=== PATIENT | male | born 1975 | race Caucasian/White ===

== ENCOUNTER → 2017-09-13 15:15 | Outpatient (CLI) | payer BC, SELFPAY ==
[2017-09-13 15:37] LABS: Basophils % 0.4 % (0.1-2.0); Eosinophils # 0.1 K/mm3 (0.0-0.4); Eosinophils % 2.1 % (0.1-12.0); Hemoglobin 15.8 g/dL (14.1-18.0); Lymphocytes # 2.5 K/mm3 (0.7-4.5); Mean Corpuscular HGB Conc 32.9 g/dL (31.8-35.4); Mean Corpuscular Hemoglobin 28.9 pg (27.0-31.2); Mean Corpuscular Volume 87.8 fl (80-94); Mean Platelet Volume 6.8 fl (7.4-10.4); Monocytes # 0.3 K/mm3 (0.1-1.0); Monocytes % 4.2 % (1.7-9.3); Neutrophils # 3.5 K/mm3 (1.8-7.8); Neutrophils % 54.4 % (37.0-80.0); Platelet Count 339 K/mm3 (142-424); Red Blood Count 5.47 M/mm3 (4.60-6.20); Red Cell Distribution Width 12.6 % (11.5-17.5); White Blood Count 6.4 K/mm3 (4.8-10.8)
[2017-09-13 18:02] LABS: Alanine Aminotransferase 43 U/L (12-78); Albumin/Globulin Ratio 1.3 (1.1-1.8); Alkaline Phosphatase 100 U/L (46-116); Amylase 50 U/L (25-125); Anion Gap 11.9 mEq/L (5-15); Aspartate Amino Transferase 23 U/L (15-37); Bilirubin,Total 0.7 mg/dL (0.2-1.0); Blood Urea Nitrogen 12 mg/dL (7-18); Calcium 9.6 mg/dL (8.5-10.1); Carbon Dioxide 29 mmol/L (21.0-32.0); Chloride 104 mmol/L (98-107); Creatinine,Serum 0.92 mg/dL (0.70-1.30); Estimated Glomerular Filt Rate 92 ml/min (>60); GFR (African American) 111 ML/MIN (>60); Globulin 3.2 gm/dl (1.3-3.2); Glucose 91 mg/dL (74-106); Lipase 147 u/L (73-393); Potassium 3.9 mmoL/L (3.5-5.1); Sodium 141 mmol/L (136-145); Total Protein,Serum 7.2 gm/dL (6.4-8.2)
== END ==
PROVIDERS: Visit Provider Internal Medicine Adolescent Medicine
DX: R19.7 Diarrhea, unspecified (principal); R10.30 Lower abdominal pain, unspecified
CPT/HCPCS: 36415; 80053; 82150; 83690; 85025

== ENCOUNTER → 2018-07-15 15:26 | Outpatient (CLI) | payer BC, SELFPAY ==
--- NOTE | 2018-07-15 15:35 | XR_ITS ---
EXAM: XR thoracic spine 3V HISTORY: ITS.REASON: MID THORACIC PAIN Comparison: None FINDINGS: Normal alignment. No fracture or dislocation. No lytic or blastic change. There is mild upper thoracic scoliosis convex left. IMPRESSION: Mid to upper levoscoliosis otherwise negative
--- NOTE | 2018-07-15 15:35 | XR_ITS ---
EXAM: XR cervical spine 5V HISTORY: ITS.REASON: NECK PAIN ORDERING PHYSICIAN: Chapo Cisneros MD PATIENT AGE: 42 years COMPARISON: None FINDINGS: Normal alignment. No fracture or dislocation. No lytic or blastic change. There is mild degenerative disc disease at C4-C5 and C5-C6. No fracture or dislocation evident. No lytic or blastic change. There is mild upper thoracic curvature convex left. No evidence of cervical rib. IMPRESSION: Degenerative disc disease C4-C5 and C5-C6
--- NOTE | 2018-07-15 15:35 | XR_ITS ---
EXAM: XR lumbar spine min 4V HISTORY: ITS.REASON: LOW BACK PAIN ORDERING PHYSICIAN: Chapo Cisneros MD PATIENT AGE: 42 years COMPARISON: None FINDINGS: Normal alignment. No fracture or dislocation. No lytic or blastic change. No significant degenerative change. The disc spaces are preserved. Incidental vascular calcification is present in the lower abdominal aorta IMPRESSION: Negative lumbar spine
== END ==
PROVIDERS: PCP Internal Medicine Adolescent Medicine; Visit Provider Internal Medicine Adolescent Medicine
DX: M54.2 Cervicalgia (principal); M54.5 Low back pain; M54.6 Pain in thoracic spine
CPT/HCPCS: 72050; 72072; 72110

== ENCOUNTER 2020-03-26 09:58 | Emergency (ER) | payer BC, SELFPAY ==
[2020-03-26 09:58] VITALS: BP 147/97; PULSE 73; RESP 18; TEMP 36.9; O2SAT 98; BMI 28.4
--- NOTE | 2020-03-26 10:18 | CT_ITS ---
PROCEDURE: CT PELVIS WO CON CLINICAL INDICATION: trauma The posttraumatic pain, tailbone pain COMPARISON: No exams were available for comparison TECHNIQUE: Axial images obtained with sagittal and coronal reformats. All CT scans at the facility use one or more dose reduction, viz: automated exposure control, ma/kV adjustment per patient size (including targeted exams where dose is matched to indication, i.e. head), or iterative reconstruction technique. FINDINGS: Bony pelvis: Unremarkable. No acute fracture or dislocation. Hips:Unremarkable. No acute fracture or dislocation. Sacrum/coccyx: Unremarkable as visualized. No acute fracture. Soft tissues:Unremarkable Other findings: No other pertinent findings IMPRESSION: No acute fracture Dictated by: Fredy Rubio MD 03/26/2020 14:16 Fredy Rubio MD in [facility] 03/26/2020 14:16
--- NOTE | 2020-03-26 10:18 | CT_ITS ---
PROCEDURE: CT LUMBAR SPINE WO CON CLINICAL HISTORY: trauma Posttraumatic pain, fall with injury and pain COMPARISON: No exams were available for comparison TECHNIQUE: Axial images obtained with sagittal and coronal reformats. All CT scans at the facility use one or more dose reduction, viz: automated exposure control, ma/kV adjustment per patient size (including targeted exams where dose is matched to indication, i.e. head), or iterative reconstruction technique. FINDINGS: Normal alignment. No fracture or dislocation. Minimal bulging disc L5-S1 and L4-L5. Small sclerotic focus is present in the L5 vertebral body consistent with a small bone island. There is minimal lumbar curvature convex left IMPRESSION: No acute finding Dictated by: Fredy Rubio MD 03/26/2020 14:18 Fredy Rubio MD in [facility] 03/26/2020 14:18
[2020-03-26 10:38] VITALS: BP 156/98; PULSE 66; RESP 20; O2SAT 98
--- NOTE | 2020-03-26 10:41 | HMH.EDFALL ---
ED Disposition Clinical Impression: Fall (on) (from) other stairs and steps, initial encounter, Acute coccygeal pain Lumbar strain Qualifiers: Encounter type: initial encounter Qualified Code(s): S39.012A - Strain of muscle, fascia and tendon of lower back, initial encounter Disposition: Home, Self-Care Condition on Discharge: Good Instructions: DI for Lumbar Radiculopathy Prescriptions: Ibuprofen [Ibuprofen 800mg Tablet] 800 mg PO TIDP PRN #20 tab PRN Reason: Moderate Pain Transmission Status: Pending to [facility] methocarbamoL [Robaxin 750mg Tab] 750 mg PO TID 10 Days #30 tab Transmission Status: Pending to [facility] Referrals: Chapo Cisneros MD [Primary Care Provider] - - Critical Care Critical Care Time: No Attestation: On 03/26/20, the high probability of a clinically significant, sudden or life threatening deterioration of the following system(s) required my full and direct attention, intervention and personal management. The time I documented below is in addition to time spent performing reported procedures but includes the following listed in this critical care notation. Medical Decision Making - Medical Records Medical records reviewed: Yes: I reviewed the patient's medical records. - Issac Inquiry Pt receiving controlled substance: Yes Issac was queried for this patient: No Reason not queried -: Emergent pt cond-no time Risks and benefits of using a controlled substance: were discussed with pt by me Vital Signs: 03/26/20 09:58 03/26/20 10:38 Temperature 98.5 F Temperature Source Oral Pulse Rate [Radial] 73 66 Respiratory Rate 18 20 Blood Pressure [Right Arm] 147/97 H 156/98 H Blood Pressure Mean [Right Arm] 113 117 Blood Pressure Source [Right Arm] Automatic Cuff Blood Pressure Position [Right Arm] Sitting Sitting 02 Sat by Pulse Oximetry 98 98 Oxygen Delivery Method Room Air Room Air Orders (Tests/Meds): ED MEDICATIONS Generic Name Dose Route Start Last Admin Trade Name Freq PRN Reason Stop Dose Admin Hydrocodone Bitart/Acetaminophen 1 tab 03/26/20 10:18 Hydrocodone 10mg/Apap 325mg Tab PO 04/25/20 10:17 Q4HP PRN Breakthru Moderate Pain ORDERS Category Date Time Status CT lumbar spine wo con Stat Cat Scan 03/26/20 10:[address] pelvis wo con Stat Cat Scan 03/26/20 10:18 Taken - CT Data CT Scan: Pelvis, L-Spine Time Received: 11:[address] Reviewed: Yes: I have reviewed the patient's CT results, I have viewed the radiologist's interpretation Preliminary Findings: Normal/NAD, No Fracture Seen - Reevaluation(s) Time: 11:31 Reevaluation #1: On reevaluation, patient's pain is improved. There is no evidence of fracture or dislocation. Patient will be discharged with analgesics as well as muscle relaxers. He is to follow-up with PCP in 48 hours. Given strict return precautions. Verbalized understanding. Medical Decision Narrative: 44-year-old male presenting after accidental fall. Imaging of the back and pelvis will be obtained. Analgesics provided. Fall HPI - General Chief Complaint: Fall Stated Complaint: [id number] back pain,home Time Seen by Provider: 03/26/20 10:05 Mode of Arrival: Wheelchair Limitations: No Limitations Description of Symptoms (Recalled from ER Triage Doc. by RN): TO ED PER PV[employer] CAR WITH C/O BACK PAIN STATES FELL DOWN A FLIGHT OF STEPS APPROX 9AM. STATES HE TOOK SOME MOTRIN AT 9AM WITH NO RELIEF OF PAIN - History of Present Illness HPI Narrative: Is a 44-year-old male presented to the emergency department after an accidental fall. The patient was at the top of the stairs when his feet slipped and he fell backwards. He landed directly on his tailbone his lower back. He is complaining of tailbone pain and lower back pain. He denies sustained any head trauma. There is no syncope. Patient was able to ambulate afterwards, however did cause significant pain in his lower back and fang
[2020-03-26 12:01] VITALS: BP 122/74; PULSE 78; RESP 16; TEMP 36.6; O2SAT 98
== END 2020-03-26 12:03 | disposition home or self-care (01) ==
PROVIDERS: Emergency Provider Emergency Medicine; PCP Internal Medicine Adolescent Medicine
DX: S39.012A Strain of muscle, fascia and tendon of lower back, initial encounter (principal); W10.8XXA Fall (on) (from) other stairs and steps, initial encounter; Y92.019 Unspecified place in single-family (private) house as the place of occurrence of the external cause; K21.9 Gastro-esophageal reflux disease without esophagitis; I10 Essential (primary) hypertension
CPT/HCPCS: 72131; 72192; 99282

== ENCOUNTER → 2020-07-11 13:20 | Outpatient (CLI) | payer BC, SELFPAY ==
[2020-07-11 14:33] LABS: Basophils % 0.6 % (0.1-2.0); Eosinophils # 0.1 K/mm3 (0.0-0.4); Eosinophils % 1.4 % (0.1-12.0); Hematocrit 47.3 % (42.0-52.0); Hemoglobin 15.7 g/dL (14.1-18.0); Lymphocytes # 2.1 K/mm3 (0.7-4.5); Lymphocytes % 38.3 % (10-50); Mean Corpuscular HGB Conc 33.2 g/dL (31.8-35.4); Mean Corpuscular Hemoglobin 29.7 pg (27.0-31.2); Mean Corpuscular Volume 89.7 fl (80-94); Mean Platelet Volume 7.5 fl (7.4-10.4); Monocytes # 0.3 K/mm3 (0.1-1.0); Neutrophils # 3.1 K/mm3 (1.8-7.8); Neutrophils % 54.6 % (37.0-80.0); Platelet Count 284 K/mm3 (142-424); Red Blood Count 5.28 M/mm3 (4.60-6.20); Red Cell Distribution Width 13.2 % (11.5-17.5); White Blood Count 5.6 K/mm3 (4.8-10.8)
[2020-07-11 15:21] LABS: Alanine Aminotransferase 58 U/L (12-78); Albumin Level 4.8 g/dl (3.5-5.0); Albumin/Globulin Ratio 1.8 (1.1-1.8); Alkaline Phosphatase 112 U/L (38-126); Aspartate Amino Transferase 40 U/L (17-59); Bilirubin,Total 0.6 mg/dl (0.2-1.3); Blood Urea Nitrogen 13 mg/dl (9-20); Calcium 9.5 mg/dl (8.4-10.2); Carbon Dioxide 28 mmol/L (22.0-30.0); Chloride 104 mmol/L (98-107); Chol/HDL Ratio 4.6 (1-3.5); Cholesterol 183 mg/dl (140-200); Estimated Glomerular Filt Rate 93 ml/min (>60); GFR (African American) 112 ML/MIN (>60); Globulin 2.6 g/dL (1.3-3.2); Glucose 92 mg/dl (74-100); HDL Cholesterol 40 mg/dl (40-60); Sodium 140 mmol/L (136-145); Total Protein,Serum 7.4 g/dl (6.3-8.2); Triglycerides 210 mg/dl (30-150); VLDL Cholesterol 42 mg/dL (0-40)
[2020-07-11 15:31] LABS: Direct LDL Cholesterol 98.05 mg/dL (100-129)
[2020-07-11 15:39] LABS: 25-OH Vitamin D, Total 28.9 ng/mL (30-100)
[2020-07-11 15:52] LABS: Thyroid Stimulating Hormone 1.29 uIU/mL (0.465-4.68)
[2020-07-11 16:11] LABS: Vitamin B12 378 pg/mL (239-931)
[2020-07-13 11:21] LABS: Testosterone,Total 337 ng/dL (264-916)
== END ==
PROVIDERS: Visit Provider Nurse Practitioner Family
DX: I10 Essential (primary) hypertension (principal); R53.81 Other malaise; E55.9 Vitamin D deficiency, unspecified
CPT/HCPCS: 36415; 80053; 80061; 82306; 82607; 84403; 84443; 85025

== ENCOUNTER → 2020-07-29 16:00 | Outpatient (CLI) | payer BC, SELFPAY | PROVIDERS: PCP Internal Medicine Adolescent Medicine; Visit Provider Internal Medicine Adolescent Medicine | DX: G47.33 Obstructive sleep apnea (adult) (pediatric) (principal); R06.83 Snoring | CPT/HCPCS: G0399 ==

== ENCOUNTER → 2020-09-16 12:36 | Outpatient (CLI) | payer BC, SELFPAY ==
--- NOTE | 2020-09-16 12:40 | US_ITS ---
PROCEDURE: US THYROID CLINICAL INDICATION: THYROMEGALY COMPARISON: No exams were available for comparison FINDINGS: Right lobe: The right lobe measures 1.6 x 4.5 x 1.9 cm and shows homogeneous echogenicity with no cystic or solid nodule seen. Left lobe: The left lobe measures 1.4 x 4.1 x 1.8 cm and shows homogeneous echogenicity with no cystic or solid nodule seen. Isthmus: The isthmus measures 0.5 cm. Additional findings: There is no obvious abnormal cervical lymphadenopathy. IMPRESSION: Mild generalized thyromegaly without nodules. Dictated by: Dr. Serafin Bautista MD 09/16/2020 14:56 Dr. Serafin Bautista MD in [place] 09/16/2020 14:56
== END ==
PROVIDERS: PCP Internal Medicine Adolescent Medicine; Visit Provider Nurse Practitioner Family
DX: E01.0 Iodine-deficiency related diffuse (endemic) goiter (principal)
CPT/HCPCS: 76536

== ENCOUNTER → 2021-02-22 07:26 | Outpatient (CLI) | payer BC, SELFPAY ==
[2021-02-22 14:26] LABS: Basophils # 0.1 K/mm3 (0-0.2); Basophils % 1.1 % (0.1-2.0); Eosinophils # 0.1 K/mm3 (0.0-0.4); Eosinophils % 2.1 % (0.1-12.0); Hematocrit 45.4 % (42.0-52.0); Hemoglobin 15.1 g/dL (14.1-18.0); Lymphocytes # 2.1 K/mm3 (0.7-4.5); Lymphocytes % 39.4 % (10-50); Mean Corpuscular HGB Conc 33.4 g/dL (31.8-35.4); Mean Corpuscular Hemoglobin 30.6 pg (27.0-31.2); Mean Corpuscular Volume 91.7 fl (80-94); Mean Platelet Volume 8.1 fl (7.4-10.4); Monocytes # 0.3 K/mm3 (0.1-1.0); Monocytes % 5.8 % (1.7-9.3); Neutrophils # 2.8 K/mm3 (1.8-7.8); Neutrophils % 51.5 % (37.0-80.0); Platelet Count 278 K/mm3 (142-424); Red Blood Count 4.94 M/mm3 (4.60-6.20); Red Cell Distribution Width 13.1 % (11.5-17.5); White Blood Count 5.4 K/mm3 (4.8-10.8)
[2021-02-22 14:59] LABS: Alanine Aminotransferase 35 U/L (12-78); Albumin Level 4.1 g/dl (3.5-5.0); Albumin/Globulin Ratio 1.7 (1.1-1.8); Alkaline Phosphatase 100 U/L (38-126); Anion Gap 10.1 mEq/L (5-15); Aspartate Amino Transferase 31 U/L (17-59); Bilirubin,Total 0.5 mg/dl (0.2-1.3); Blood Urea Nitrogen 14 mg/dl (9-20); Calcium 8.7 mg/dl (8.4-10.2); Carbon Dioxide 27 mmol/L (22.0-30.0); Chloride 106 mmol/L (98-107); Chol/HDL Ratio 4.3 (1-3.5); Cholesterol 136 mg/dl (140-200); Creatine Kinase 101 U/L (55-170); Estimated Glomerular Filt Rate 106 ml/min (>60); GFR (African American) 128 ML/MIN (>60); Globulin 2.4 g/dL (1.3-3.2); Glucose 110 mg/dl (74-100); HDL Cholesterol 32 mg/dl (40-60); Magnesium 1.8 mg/dl (1.6-2.3); Potassium 4.1 mmoL/L (3.5-5.1); Sodium 139 mmol/L (136-145); Total Protein,Serum 6.5 g/dl (6.3-8.2); Triglycerides 335 mg/dl (30-150); VLDL Cholesterol 67 mg/dL (0-40)
[2021-02-22 15:10] LABS: Direct LDL Cholesterol 64.37 mg/dL (100-129)
[2021-02-22 15:16] LABS: 25-OH Vitamin D, Total 48.7 ng/mL (30-100)
[2021-02-22 15:34] LABS: Hemoglobin A1C 5.6 % (4.0-6.0)
[2021-02-22 15:49] LABS: Vitamin B12 560 pg/mL (239-931)
[2021-02-27 18:09] LABS: Testosterone, Total, LC/MS 305.1 ng/dL (264.0-916.0); Testosterone,Free 7.2 pg/mL (6.8-21.5)
== END ==
PROVIDERS: Visit Provider Internal Medicine Adolescent Medicine
DX: M79.10 Myalgia, unspecified site (principal); R53.81 Other malaise; E53.8 Deficiency of other specified B group vitamins; E55.9 Vitamin D deficiency, unspecified
CPT/HCPCS: 36415; 80053; 80061; 82306; 82533; 82550; 82607; 83036; 83735; 84402; 84403; 85025

== ENCOUNTER → 2021-07-18 12:18 | Outpatient (CLI) | payer BC, SELFPAY ==
--- NOTE | 2021-07-18 12:32 | XR_ITS ---
FINAL REPORT CLINICAL HISTORY: RT FOOT PAIN FINDINGS: RIGHT FOOT Three views demonstrate no acute fracture or dislocation. The joint spaces appear normal. The visualized bony structures are well aligned. No soft tissue abnormality is seen. IMPRESSION: No acute process. Reviewed, Interpreted and Dictated by Adrian Gauthier III, MD Transcribed by Alisson Hunter Authenticated by Adrian Gauthier III, MD on 07/18/2021 01:46:04 PM [facility]
--- NOTE | 2021-07-18 12:32 | XR_ITS ---
FINAL REPORT CLINICAL HISTORY: LOW BACK PAIN FINDINGS: SACROILIAC JOINTS Four views demonstrate no acute fracture or dislocation. The joint spaces appear normal. The visualized bony structures are well aligned. No soft tissue abnormality is seen. IMPRESSION: No acute process. Reviewed, Interpreted and Dictated by Adrian Gauthier III, MD Transcribed by Alisson Hunter Authenticated by Adrian Gauthier III, MD on 07/18/2021 01:45:[address] [facility]
--- NOTE | 2021-07-18 12:32 | XR_ITS ---
FINAL REPORT CLINICAL HISTORY: . FINDINGS: THORACIC SPINE Three views were obtained. There is no acute fracture. There is no malalignment. There is leftward curvature centered at T4. The disc spaces are preserved. There is no soft tissue abnormality. IMPRESSION: Leftward curvature without acute bony abnormality. LUMBAR SPINE Two views were obtained. There is no acute fracture. There is no malalignment. There is mild leftward curvature. The disc spaces are preserved. There is no soft tissue abnormality. IMPRESSION: Leftward curvature without acute bony abnormality. Reviewed, Interpreted and Dictated by Adrian Gauthier III, MD Transcribed by Paulina Anderson Authenticated by Adrian Gauthier III, MD on 07/18/2021 02:06:36 PM [facility]
--- NOTE | 2021-07-18 12:32 | XR_ITS ---
FINAL REPORT CLINICAL HISTORY: LT FOOT PAIN FINDINGS: LEFT FOOT Three views demonstrate no acute fracture or dislocation. The joint spaces appear normal. The visualized bony structures are well aligned. No soft tissue abnormality is seen. IMPRESSION: No acute process. Reviewed, Interpreted and Dictated by Adrian Gauthier III, MD Transcribed by Alisson Hunter Authenticated by Adrian Gauthier III, MD on 07/18/2021 01:46:01 PM [facility]
[2021-07-18 13:30] LABS: Basophils # 0.1 K/mm3 (0-0.2); Basophils % 0.9 % (0.1-2.0); Eosinophils # 0.1 K/mm3 (0.0-0.4); Eosinophils % 1.9 % (0.1-12.0); Hematocrit 45.7 % (42.0-52.0); Lymphocytes # 1.9 K/mm3 (0.7-4.5); Lymphocytes % 37.9 % (10-50); Mean Corpuscular HGB Conc 32.9 g/dL (31.8-35.4); Mean Corpuscular Hemoglobin 29.7 pg (27.0-31.2); Mean Corpuscular Volume 90.3 fl (80-94); Mean Platelet Volume 8.5 fl (7.4-10.4); Monocytes # 0.2 K/mm3 (0.1-1.0); Monocytes % 4.7 % (1.7-9.3); Neutrophils # 2.7 K/mm3 (1.8-7.8); Neutrophils % 54.6 % (37.0-80.0); Platelet Count 283 K/mm3 (142-424); Red Blood Count 5.06 M/mm3 (4.60-6.20); Red Cell Distribution Width 13.8 % (11.5-17.5)
[2021-07-18 14:07] LABS: Erythrocyte Sedimentation Rate 8 mm/hr (0-15)
[2021-07-18 14:12] LABS: Alanine Aminotransferase 44 U/L (12-78); Albumin Level 4.4 g/dl (3.5-5.0); Albumin/Globulin Ratio 1.9 (1.1-1.8); Alkaline Phosphatase 92 U/L (38-126); Aspartate Amino Transferase 35 U/L (17-59); Bilirubin,Total 0.8 mg/dl (0.2-1.3); Blood Urea Nitrogen 15 mg/dl (9-20); Calcium 8.9 mg/dl (8.4-10.2); Carbon Dioxide 26 mmol/L (22.0-30.0); Chloride 106 mmol/L (98-107); Estimated Glomerular Filt Rate 106 ml/min (>60); GFR (African American) 128 ML/MIN (>60); Globulin 2.3 g/dL (1.3-3.2); Glucose 102 mg/dl (74-100); Sodium 140 mmol/L (136-145); Total Protein,Serum 6.7 g/dl (6.3-8.2)
[2021-07-18 14:29] LABS: C-Reactive Protein 0.4 mg/L (0-4)
[2021-07-19 12:19] LABS: RA Latex Turbid. <10.0 IU/mL (<14.0)
[2021-07-19 15:14] LABS: Anti-Cardiolipin Antibody IgG <9 GPL U/mL (0-14); Anti-Centromere B Antibodies <0.2 AI (0.0-0.9); Anti-DNA (DS) Ab Qn 1 IU/mL (0-9); Anti-Jo-1 <0.2 AI (0.0-0.9); Anti-Smith Antibody <0.2 AI (0.0-0.9); Antichromatin Antibodies <0.2 AI (0.0-0.9); Antiscleroderma-70 Antibodies <0.2 AI (0.0-0.9); RNP Antibodies <0.2 AI (0.0-0.9); Sjogren's Anti-SS-A <0.2 AI (0.0-0.9); Sjogren's Anti-SS-B <0.2 AI (0.0-0.9)
[2021-07-19 23:18] LABS: Neisseria gonorrhoeae, NAA Negative (Negative)
== END ==
PROVIDERS: PCP Internal Medicine Adolescent Medicine; Visit Provider Internal Medicine Adolescent Medicine
DX: M19.90 Unspecified osteoarthritis, unspecified site (principal); R30.0 Dysuria; M54.50 Low back pain, unspecified; M79.672 Pain in left foot; M79.671 Pain in right foot
CPT/HCPCS: 36415; 72084; 72202; 73630; 80053; 85025; 85651; 86140; 86147; 86225; 86235; 86431; 87491; 87591

== ENCOUNTER 2021-08-11 03:13 | Emergency (ER) | payer BC, SELFPAY ==
[2021-08-11] VITALS (7 sets, daily range): BP systolic 132–162; BP diastolic 78–100; PULSE 67–85; RESP 17–24; TEMP 36.6–36.9; O2SAT 93–99; BMI 33.4
--- NOTE | 2021-08-11 03:11 | ECG_ITS ---
APPROVED REPORT Exam: Resting ECG HR:91 bpm ECG Measurements Heart Rate 91 AXES HI 143 P 63 QRSd 92 QRS 72 QT 326 T 27 QTc 374 Conclusion SINUS RHYTHM NORMAL ECG UNCONFIRMED REPORT Electronically signed by : Chapo Cisneros MD 08/12/2021 12:13:18
[2021-08-11 03:52] LABS: POC Glucose,Bedside 125 (70-110)
--- NOTE | 2021-08-11 04:08 | XR_ITS ---
PROCEDURE INFORMATION: Exam: XR Chest Exam date and time: 08/11/2021 4:15 AM Age: 45 years old Clinical indication: Sternal or substernal pain; Additional info: Chest pain TECHNIQUE: Imaging protocol: XR of the chest. Views: 1 view. COMPARISON: CR XR MULTIPLE SPINE 6+V 07/18/2021 12:36 PM FINDINGS: Lungs: Hypoventilatory changes of the lungs, with perihilar vascular crowding and a diffuse increase in pulmonary parenchymal density. Pleural spaces: Unremarkable. No pleural effusion. No pneumothorax. Heart/Mediastinum: Upper limits normal cardiac size accentuated by low lung volumes. Bones/joints: Unremarkable. IMPRESSION: Hypoventilatory changes, no acute findings.
[2021-08-11 04:17] LABS: Chloride 106 mmol/L (98-107); Potassium 3.8 mmoL/L (3.5-5.1); Sodium 140 mmol/L (136-145)
[2021-08-11 04:19] LABS: Alanine Aminotransferase 135 U/L (12-78); Aspartate Amino Transferase 63 U/L (17-59); Blood Urea Nitrogen 16 mg/dl (9-20); Creatinine Clearance Estimated 168 mL/min (50-200); Estimated Glomerular Filt Rate 106 ml/min (>60); GFR (African American) 128 ML/MIN (>60)
[2021-08-11 04:20] LABS: Albumin Level 4.3 g/dl (3.5-5.0); Albumin/Globulin Ratio 1.4 (1.1-1.8); Alkaline Phosphatase 152 U/L (38-126); Anion Gap 10.8 mEq/L (5-15); Bilirubin,Total 0.8 mg/dl (0.2-1.3); Calcium 8.6 mg/dl (8.4-10.2); Carbon Dioxide 27 mmol/L (22.0-30.0); Glucose 117 mg/dl (74-100); Total Protein,Serum 7.3 g/dl (6.3-8.2)
[2021-08-11 04:22] LABS: Basophils # 0.1 K/mm3 (0-0.2); Basophils % 1.2 % (0.1-2.0); Eosinophils # 0.1 K/mm3 (0.0-0.4); Eosinophils % 1.8 % (0.1-12.0); Hematocrit 47.6 % (42.0-52.0); Hemoglobin 15.9 g/dL (14.1-18.0); Lymphocytes # 1.6 K/mm3 (0.7-4.5); Lymphocytes % 33.2 % (10-50); Mean Corpuscular HGB Conc 33.4 g/dL (31.8-35.4); Mean Corpuscular Hemoglobin 30.6 pg (27.0-31.2); Mean Corpuscular Volume 91.7 fl (80-94); Mean Platelet Volume 7.7 fl (7.4-10.4); Monocytes # 0.3 K/mm3 (0.1-1.0); Monocytes % 5.6 % (1.7-9.3); Neutrophils # 2.8 K/mm3 (1.8-7.8); Neutrophils % 58.2 % (37.0-80.0); Platelet Count 228 K/mm3 (142-424); White Blood Count 4.7 K/mm3 (4.8-10.8)
--- NOTE | 2021-08-11 04:28 | HMH.EDGENADL ---
ED Disposition Clinical Impression: Acute anxiety, Atypical chest pain Disposition: Home, Self-Care Condition on Discharge: Good Instructions: Anxiety Disorders Additional Instructions: Recommend touching base with Dr. Cortés for follow-up after this ER visit. Return to the ER for any new or worsening symptoms. Referrals: Chapo Cisneros MD [Primary Care Provider] - - Critical Care Critical Care Time: No Attestation: On 08/11/21, the high probability of a clinically significant, sudden or life threatening deterioration of the following system(s) required my full and direct attention, intervention and personal management. The time I documented below is in addition to time spent performing reported procedures but includes the following listed in this critical care notation. Medical Decision Making - Medical Records Medical records reviewed: Yes: I reviewed the patient's medical records. - Issac Inquiry Pt receiving controlled substance: No Vital Signs: 08/11/21 03:13 08/11/21 04:30 08/11/21 05:00 Temperature 98.2 F Temperature Source Oral Pulse Rate 82 83 Pulse Rate [Right] 85 Respiratory Rate 20 24 Blood Pressure 139/89 134/89 Blood Pressure [Right Arm] 162/100 H Blood Pressure Mean [Right Arm] 120 Blood Pressure Source [Right Arm] Automatic Cuff 02 Sat by Pulse Oximetry 99 93 L 96 Oxygen Delivery Method Room Air Room Air Room Air 08/11/21 06:00 08/11/21 06:30 08/11/21 06:33 Temperature 98.4 F Temperature Source Oral Pulse Rate 83 80 67 Pulse Rate [Right] Respiratory Rate 17 Blood Pressure 137/89 136/90 135/80 Blood Pressure [Right Arm] Blood Pressure Mean [Right Arm] Blood Pressure Source [Right Arm] 02 Sat by Pulse Oximetry 93 L 95 Oxygen Delivery Method Room Air Room Air Room Air - Lab Data Lab Results 08/11/21 03:17: WBC 4.7 L, RBC 5.20, Hgb 15.9, Hct 47.6, MCV 91.7, MCH 30.6, MCHC 33.4, RDW 14.0, Plt Count 228, MPV 7.7, Neut % (Auto) 58.2, Lymph % (Auto) 33.2, [place] % (Auto) 5.6, Eos % (Auto) 1.8, Baso % (Auto) 1.2, Neut # (Auto) 2.8, Lymph # (Auto) 1.6, [place] # (Auto) 0.3, Eos # (Auto) 0.1, Baso # (Auto) 0.1 08/11/21 03:17: Sodium 140, Potassium 3.8, Chloride 106, Carbon Dioxide 27, Anion Gap 10.8, BUN 16, Creatinine 0.80, Estimated Creat Clear 168, Estimated GFR 106, Est GFR ( Amer) 128, Glucose 117 H, Calcium 8.6, Total Bilirubin 0.8, AST 63 H, ALT 135 H, Alkaline Phosphatase 152 H, Troponin I < 0.01, Total Protein 7.3, Albumin 4.3, Globulin 3.0, Albumin/Globulin Ratio 1.4 08/11/21 03:44: POC Glucose 125 H 08/11/21 05:51: Troponin I < 0.01 Result diagrams: 08/11/21 03:17 08/11/21 03:17 Orders (Tests/Meds): ED MEDICATIONS Discontinued Medications Generic Name Dose Route Start Last Admin Trade Name Freq PRN Reason Stop Dose Admin Acetaminophen 1,000 mg 08/11/21 04:09 08/11/21 04:17 Acetaminophen 500mg Tab PO 08/11/21 04:10 1,000 mg ONCE ONE Administration Sodium Chloride 1,000 mls @ 999 mls/hr 08/11/21 04:15 08/11/21 04:26 Sod Chlor 0.9% 1000ml Bag IV 08/11/21 05:15 Not Given .Q1H1M ANGELITA Sodium Chloride 1,000 mls @ 999 mls/hr 08/11/21 05:15 Sod Chlor 0.9% 1000ml Bag IV 08/11/21 06:15 .Q1H1M ANGELITA Ketorolac Tromethamine 15 mg 08/11/21 04:08 08/11/21 04:26 Ketorolac 30mg/Ml Vial IV 08/11/21 04:09 Not Given ONCE ONE Midazolam HCl 1 mg 08/11/21 04:08 08/11/21 04:17 Midazolam 2mg/2ml Vial IV 08/11/21 04:09 1 mg ONCE ONE Administration ORDERS Category Date Time Status XR chest portable Stat Exams 08/11/21 04:08 Taken Troponin I Q3H Lab 08/11/21 10:15 Ordered Medical Decision Narrative: 45-year-old male who presents with generalized feelings of weakness describing dull pressure across his chest that he has had previously with panic attacks. States he woke up with an odd feeling and it progressed from there. He denies any radiation to his back and he is well-appear
[2021-08-11 04:39] LABS: Troponin I < 0.01 ng/ml (0.00-0.034)
--- NOTE | 2021-08-11 06:00 | PC.NURSE ---
Called [facility] to chat with vrad d/t CXR read not complete.
[2021-08-11 06:22] LABS: Troponin I < 0.01 ng/ml (0.00-0.034)
--- NOTE | 2021-08-11 06:31 | PC.NURSE ---
Contacted radiology again, they have had change of shift, and still no read. Will chat with V[facility] again
--- NOTE | 2021-08-11 06:52 | PC.NURSE ---
Addendum entered by Maryjane Fisher RN 08/11/21 07:19: Late entry: @ 0652: Pt & updated on wait time and xr read delay at this Original Note: s/w service tech/welder again, they have had chat up since 635 and still no response. Per MD, asked to call vrad and escalate it.
--- NOTE | 2021-08-11 07:08 | PC.NURSE ---
industrial hygiene technician called again, states [facility]rad responded via chat and they state d/t high capacity they are taking things on priority basis. States they can not give an ETA.
== END 2021-08-11 07:48 | disposition home or self-care (01) ==
PROVIDERS: Emergency Provider Student in an Organized Health Care Education/Training Program; PCP Internal Medicine Adolescent Medicine
DX: F41.0 Panic disorder [episodic paroxysmal anxiety] (principal); R07.89 Other chest pain; K21.9 Gastro-esophageal reflux disease without esophagitis; I10 Essential (primary) hypertension; R29.700 NIHSS score 0
CPT/HCPCS: 71045; 80053; 82962; 84484; 85025; 93005; 96360; 96361; 96375; 99284

== ENCOUNTER → 2022-03-23 09:00 | Outpatient (CLI) | payer BC, SELFPAY ==
[2022-03-23 10:30] LABS: Alanine Aminotransferase 66 U/L (12-78); Albumin Level 4.3 g/dl (3.5-5.0); Albumin/Globulin Ratio 1.7 (1.1-1.8); Alkaline Phosphatase 131 U/L (38-126); Anion Gap 9.2 mEq/L (5-15); Aspartate Amino Transferase 44 U/L (17-59); Bilirubin,Total 0.6 mg/dl (0.2-1.3); Blood Urea Nitrogen 17 mg/dl (9-20); Calcium 9.2 mg/dl (8.4-10.2); Carbon Dioxide 30 mmol/L (22.0-30.0); Chloride 105 mmol/L (98-107); Chol/HDL Ratio 6.5 (1-3.5); Cholesterol 242 mg/dl (140-200); Estimated Glomerular Filt Rate 92 ml/min (>60); GFR (African American) 111 ML/MIN (>60); Globulin 2.5 g/dL (1.3-3.2); Glucose 100 mg/dl (74-100); HDL Cholesterol 37 mg/dl (40-60); Potassium 4.2 mmoL/L (3.5-5.1); Sodium 140 mmol/L (136-145); Total Protein,Serum 6.8 g/dl (6.3-8.2); Triglycerides 265 mg/dl (30-150); VLDL Cholesterol 53 mg/dL (0-40)
[2022-03-23 10:41] LABS: Direct LDL Cholesterol 140.46 mg/dL (100-129)
[2022-03-23 11:39] LABS: Hemoglobin A1C 5.7 % (4.0-6.0)
== END ==
PROVIDERS: PCP Internal Medicine Adolescent Medicine; Visit Provider Internal Medicine Adolescent Medicine
DX: E11.9 Type 2 diabetes mellitus without complications (principal); Z79.84 Long term (current) use of oral hypoglycemic drugs
CPT/HCPCS: 36415; 80053; 80061; 83036

== ENCOUNTER 2023-08-15 08:10 | Outpatient (CLI) | payer BC, SELFPAY ==
[2023-08-15 08:58] LABS: Basophils % 0.8 % (0.1-2.0); Eosinophils # 0.1 K/mm3 (0.0-0.4); Eosinophils % 2.4 % (0.1-12.0); Lymphocytes # 2.1 K/mm3 (0.7-4.5); Lymphocytes % 43.9 % (10-50); Mean Corpuscular HGB Conc 32.7 g/dL (31.8-35.4); Mean Corpuscular Hemoglobin 30.2 pg (27.0-31.2); Mean Corpuscular Volume 92.2 fl (80-94); Mean Platelet Volume 7.6 fl (7.4-10.4); Monocytes # 0.3 K/mm3 (0.1-1.0); Monocytes % 6.1 % (1.7-9.3); Neutrophils # 2.2 K/mm3 (1.8-7.8); Neutrophils % 46.8 % (37.0-80.0); Platelet Count 242 K/mm3 (142-424); Red Blood Count 5.31 M/mm3 (4.60-6.20); White Blood Count 4.7 K/mm3 (4.8-10.8)
[2023-08-15 09:12] LABS: Chloride 106 mmol/L (98-107); Potassium 4.2 mmoL/L (3.5-5.1); Sodium 140 mmol/L (136-145)
[2023-08-15 09:14] LABS: Alanine Aminotransferase 43 U/L (12-78); Aspartate Amino Transferase 38 U/L (17-59); Blood Urea Nitrogen 12 mg/dl (9-20); Estimated Glomerular Filt Rate 81 ml/min (>60); GFR (African American) 98 ML/MIN (>60)
[2023-08-15 09:15] LABS: Albumin Level 4.2 g/dl (3.5-5.0); Albumin/Globulin Ratio 1.7 (1.1-1.8); Alkaline Phosphatase 108 U/L (38-126); Anion Gap 7.2 mEq/L (5-15); Bilirubin,Total 0.8 mg/dl (0.2-1.3); Calcium 9.4 mg/dl (8.4-10.2); Carbon Dioxide 31 mmol/L (22.0-30.0); Globulin 2.5 g/dL (1.3-3.2); Glucose 106 mg/dl (74-100); Total Protein,Serum 6.7 g/dl (6.3-8.2)
[2023-08-15 09:37] LABS: 25-OH Vitamin D, Total 28.3 ng/mL (30-100); Free T4 (Free Thyroxine) 0.64 ng/dl (0.78-2.19)
[2023-08-15 09:45] LABS: Thyroid Stimulating Hormone 1.74 uIU/mL (0.465-4.68)
[2023-08-16 08:20] LABS: Thyroid Peroxidase Antibodies 10 IU/mL (0-34)
[2023-08-16 18:16] LABS: Thyroglobulin Level <1.0 IU/mL (0.0-0.9)
[2023-08-18 13:30] LABS: Antinuclear Antibodies, IFA Negative (.)
== END 2023-08-15 23:59 | disposition home or self-care (01) ==
LOC: LAB 08:11
PROVIDERS: PCP Internal Medicine Adolescent Medicine; Visit Provider Allergy & Immunology
DX: L50.8 Other urticaria (principal); J30.89 Other allergic rhinitis
CPT/HCPCS: 36415; 80053; 82306; 82785; 83520; 84439; 84443; 85025; 86003; 86038; 86352; 86376; 86800

== ENCOUNTER 2023-09-30 14:49 | Outpatient (CLI) | payer BC, SELFPAY ==
--- NOTE | 2023-09-30 14:54 | US_ITS ---
FINAL REPORT TECHNIQUE: Sonographic images of the thyroid were obtained. CLINICAL HISTORY: THYROMEGALY FINDINGS: THYROID ULTRASOUND The right thyroid gland measures 4.9 x 1.6 x 1.5 cm which is slightly enlarged. The parenchyma shows normal echogenicity. No dominant mass is seen. The left thyroid gland measures 4.0 x 1.4 x 1.2 cm. The parenchyma shows normal echogenicity. No dominant mass is seen. IMPRESSION: Slightly enlarged right thyroid gland. No dominant mass is identified. Reviewed, Interpreted and Dictated by Adrian Gauthier III, MD Transcribed by Susan Kenny Authenticated and [facility]
== END 2023-09-30 23:59 | disposition home or self-care (01) ==
LOC: RAD 14:49
PROVIDERS: PCP Nurse Practitioner Family; Visit Provider Nurse Practitioner Family
DX: E01.0 Iodine-deficiency related diffuse (endemic) goiter (principal)
CPT/HCPCS: 76536

== ENCOUNTER 2023-10-10 11:18 | Outpatient (CLI) | payer BC, SELFPAY ==
--- NOTE | 2023-10-10 | XR_ITS ---
FINAL REPORT CLINICAL HISTORY: ACUTE BRONCHITITS, STATES HE HAD COVID IN THE WINTER & HAS HAD LINGERING SYMPTONS SINCE COMPARISON: 08/11/2021 FINDINGS: 2 views of the chest were obtained . The heart is normal in size. The mediastinum is within normal limits. The lungs are clear. There is no pneumothorax. Osseous structures are unremarkable. IMPRESSION: No acute cardiopulmonary process. Reviewed, Interpreted and Dictated by Luc Gaston MD Transcribed by Giuliana Hunter Authenticated and [facility]
== END 2023-10-10 23:59 | disposition home or self-care (01) ==
LOC: RAD 11:19
PROVIDERS: PCP Internal Medicine Adolescent Medicine; Visit Provider Physician Assistant
DX: J20.9 Acute bronchitis, unspecified (principal)
CPT/HCPCS: 71046

== ENCOUNTER 2023-10-14 01:23 | Emergency (ER) | payer BC, SELFPAY ==
[2023-10-14 01:25] VITALS: BP 136/89; PULSE 73; RESP 14; TEMP 36.6; O2SAT 96; BMI 34.8
--- NOTE | 2023-10-14 01:31 | ED_ITS ---
Discharge Plan Disposition Patient Disposition: Home, Self-Care Prescriptions Prescriptions: No Action Jardiance 25 mg tablet 25 mg PO DAILY fluoxetine 20 mg capsule 20 mg PO DAILY PRN tamsulosin 0.4 mg capsule PO Dexilant 60 mg capsule,biphase delayed releas 60 mg PO DAILY Bystolic 5 mg tablet See Rx Instructions PO DAILY Rx Instructions: 10mg PO daily; atorvastatin 20 mg tablet 20 mg PO HS metformin 500 MG tablet 500 mg PO BID montelukast 10 MG tablet 10 mg PO PM levocetirizine 5 MG tablet 5 mg PO DAILY Referrals Follow up/Referrals: Chapo Cisneros MD [Primary Care Provider] - See instructions Activity Restrictions/Add. Instructions Additional Instructions/Restrictions: Please use eardrops 4 times a day for the next 5 days. Clinical Impressions Clinical Impression: Ear foreign body Qualifiers: Encounter type: initial encounter Laterality: left Qualified Code(s): T16.2XXA - Foreign body in left ear, initial encounter Discharge ED Provider: Enrique Adhikari General Adult HPI General Chief complaint: Ear Stated complaint: bug in L ear Time Seen by Provider: 10/14/23 01:30 History of Present Illness HPI narrative: 47-year-old male without significant past medical history presents with a bug in the left ear. He reports that he felt it going to his ear about an hour prior to arrival. He put water and olive oil in it without being able to flush it out, though he does believe that the olive oil killed the bed. Related Data Home Medications Medication Instructions Recorded Confirmed dexlansoprazole 60 mg 60 mg PO DAILY stomach 08/08/18 11/21/22 capsule,biphase delayed release (Dexilant) nebivolol 5 mg tablet (Bystolic) See Rx Instructions PO DAILY bp 09/14/20 11/21/22 levocetirizine 5 mg tablet 5 mg PO DAILY Allergy symptoms 08/11/21 11/21/22 metformin 500 mg tablet 500 mg PO BID Diabetes 08/11/21 11/21/22 montelukast 10 mg tablet 10 mg PO PM Allergy symptoms 08/11/21 11/21/22 empagliflozin 25 mg tablet 25 mg PO DAILY 09/13/21 11/21/22 (Jardiance) fluoxetine 20 mg capsule 20 mg PO DAILY PRN 09/13/21 11/21/22 tamsulosin 0.4 mg capsule cap PO 09/13/21 11/21/22 atorvastatin 20 mg tablet 20 mg PO HS 10/31/21 11/21/22 Allergies Allergy/AdvReac Type Severity Reaction Status Date / Time Penicillins Allergy Severe Difficulty Verified 10/14/23 01:37 Swallowing inositol niacinate Allergy Mild Rash Verified 10/14/23 01:37 [From Niacin No Flush] niacin [From Niacin No Flush] Allergy Mild Rash Verified 10/14/23 01:37 almond Allergy Verified 11/21/22 08:40 PFSH [facility] Disclaimer: The information contained in this section may have been updated after the patient was seen, as this information can be updated by other users. Social History Smoking Status: Unknown if ever smoked alcohol intake: never substance use type: denies use current occupational status: employed Travel in the last 8 weeks: None household members: spouse and children housing: house caffeine: No ROS Obtained: Yes All systems reviewed & no additional complaints except as documented Physical Exam General General appearance: alert and in no apparent distress Head Head exam: atraumatic and normocephalic Eye Eye exam: Present normal appearance, PERRL and EOMI ENT ENT exam: Present normal oropharynx, normal external ear exam and other (There is a intact bug adherent to the left TM) Neck Neck exam: Present normal inspection and full ROM Chest Chest inspection: Present normal inspection and symmetric chest wall rise; Absent tenderness Respiratory Respiratory exam: Present normal lung sounds bilaterally; Absent respiratory distress Cardiovascular Cardiovascular exam: Present regular rate and normal rhythm Abdominal Exam Abdominal exam: Present soft; Absent distention, tenderness or guarding Extremities Exam Extremities exam: Present normal inspection; Absent edema or joint swelling Back Exam Back exam: Present normal inspection; Absent tenderness Neurological Exam Neurological exam: Present alert and oriented X3; Absent motor sensory deficit Psychiatric Psychiatric exam: Present normal affect and normal mood Skin Skin exam: Present warm, dry and normal color Lymphatic Lymphatic Findings: no adenopathy Medical Decision Making Medical Records Medical records reviewed: Yes I reviewed the patient's medical records. Issac Inquiry Pt receiving controlled substance: No Issac was queried for this patient: No Vital Signs: 10/14/23 01:25 10/14/23 02:06 Temperature 97.9 F 97.9 F Temperature Source Oral Oral Pulse Rate 65 Pulse Rate [Left] 73 Respiratory Rate 14 16 Blood Pressure 116/72 Blood Pressure [Right Arm] 136/89 Blood Pressure Mean [Right Arm] 104 02 Sat by Pulse Oximetry 96 Oxygen Delivery Method Room Air Room Air Lab Data Lab results reviewed: Yes I reviewed the patient's lab results. Orders (Tests/Meds): ED MEDICATIONS Discontinued Medications Generic Name Dose Route Start Last Admin Trade Name [place] PRN Reason Stop Dose Admin Neomycin/Polymyxin/Hydrocortisone 10 ml 10/14/23 01:54 Wphelgdj-Ldgdvzoqc-Qu Otic Susp 10ml OT 10/14/23 01:55 ONCE ONE Medical Decision Narrative: 47-year-old male presents with a bug in his left ear. He was able to kill it with oil prior to arrival but was unable to flush it out. The bug was directly visualized by me, no evidence of acute TM perforation. The ear was irrigated and then the bug was removed while with forceps. Patient was discharged with prescription for neomycin polymyxin otic drops for prophylaxis. Patient discharged in stable condition. Procedures Risk/Benefits of Procedure(s) Were Explained: Yes FB Removal Ear Location: ear canal (L) Foreign Body Suspected: insect TM intact pre-procedure: yes If Insect Suspected: ear canal instilled with other (Saline) Foreign Body Removed: yes Foreign Body Removal Technique: forceps Tympanic Membrane Intact Post Procedure: Yes Patient Tolerated Procedure: well Complications: vertigo Critical Care Critical Care Time Critical Care Time: No
[2023-10-14 02:06] VITALS: BP 116/72; PULSE 65; RESP 16; TEMP 36.6; O2SAT 96
== END 2023-10-14 02:14 | disposition home or self-care (01) ==
PROVIDERS: Emergency Provider Emergency Medicine; PCP Internal Medicine Adolescent Medicine
DX: T16.2XXA Foreign body in left ear, initial encounter (principal); W44.F4XA Insect entering into or through a natural orifice, initial encounter
CPT/HCPCS: 69200; 99283

== ENCOUNTER 2024-11-09 01:13 | Emergency (ER) | payer BC, SELFPAY ==
--- OUTSIDE RECORDS SUMMARY | 2024-09-18 11:00 | XMS_ITS ---
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 eval and treat Diagnosis 1 Tenderness of brachi oradialis muscle (M79.18) Referral Organization [facility] Referring Provider First Name Chapo Referring Provider Last Name Amelia Referring Provider Speciality Internal M edicine General Notes Katelin Smalls 05/2024 09:06:37 AM > faxed and they will call him Referral Priority Routine REASON FOR VISIT has pain in the tendon of his lt forearm and the pain radiates into his elbow- has a knot on that tendon Medications Medication SIG (Take, Route, Frequency, Duration) Notes Start Date End Date Status Claritin 10 MG 1 tab(s) orally once a day prn Active Ipratropium [place] 21 MCG/INH 2 SPRAY(S) INTRANASALLY 3 TIMES A DAY *Please review and pick correct strength-formulati on from Deep-Securespan options. If intended option is not shown, discontinue and re-order from Quick Search* Active Famotidine 20 MG 1 tab(s) orally once a day; Duration: 30 days Active Dexilant 60 MG 1 cap(s) orally once a day; Duration: 90 days Active Mounjaro 5 MG/0.5ML 0.5ML Subcutaneous once a week; Duration: 28 days Active Cetirizine HCl 10 MG 1 tablet Orally Onc e a day; Duration: 30 days 08/28/2024 Active Nebivolol HCl 10 MG TAKE 1 TABLET BY MOUTH ONCE DAILY 30 DAYS; Duration: 30 Active Jardiance 25 MG TAKE 1 TABLET BY MOUTH EVERY MORNING; Duration: 30 Active Voltaren Arthritis Pain 1 % as directed Externally 3 times a day; Duration: 10 days 09/18/2024 Active Meloxicam 7.5 MG 1 tab(s) orally once a day as needed for joint pain; Duration: 90 days 05/20/2024 Active Rosuvastatin Calcium 5 MG 1 tab(s) orally once a day; Duration: 90 day(s) Active FLUoxetine HCl 20 MG TAKE 1 CAPSULE BY MOUTH ONCE DAILY; Duration: 30 Active Tamsulosin HCl 0.4 MG TAKE 1 CAPSULE BY MOUTH ONCE DAILY; Duration: 30 Active Flonase Allergy Relief 50 MCG/ACT 1 spray in each nostril in each nostril twice daily; Duration: 30 days 01/02/2023 Active Vital Signs Temperature 97.9 degrees Fahrenheit 09/19/19 25 Blood pressure systolic 124 mm Hg 09/19/19 25 Blood pressure diastolic 82 mm Hg 025 Heart Rate 80 /min 09/18/2024 Height 69 in 09/18/2024 Weight 224 lbs 09/18/2024 BMI 33.08 kg/m2 09/18/2024 Encounters Encounter Location Date Provider Diagnosis [facility] [address] [facility] [address] [place] [address] 09/18/2024 Chapo Cisneros Tenderness of brachioradialis muscle M79.18 ; Left lateral epicondylitis M77.12 and Type 2 diabetes mellitus without complication, without long-term current use of insulin E11.9 Assessments Encounter Date Diagnosis (ICD Code) Assessment Notes Treatment Notes Treatment Clinical Notes Section Notes 09/18/2024 Tenderness of brachioradialis muscle (ICD-10 - M79.18) Trial of Voltaren. He is really tender on the brachial radialis muscle, not so much on the lateral condyle. Does not seem to be muscular tearing. 09/18/2024 Left lateral epicondylitis (ICD-10 - M77.12) Treatment as above, consider MRI if no better 09/18/2024 Type 2 diabetes mellitus without complication, without long-term current use of insulin (ICD-10 - E11.9) Increase dose of Mounjaro as noted Plan Of Treatment Medication Medication Name Sig Start Date Stop Date Notes Mounjaro 5 MG/0.5ML 0.5ML Subcutaneous o nce a week; Duration: 28 days Voltaren Arthritis Pain 1 % as directed Externally 3 times a day; Duration: 10 days 09/18/2024 Treatment Notes Assessment Notes Tenderness of brachioradialis muscle Trial of Voltaren. He is really tender on the brachial radialis muscle, not so much on the lateral condyle. Does not seem to be muscular tearing. Left lateral epicondylitis Treatment as above, consider MRI if no better Type 2 diabetes mellitus wit hout complication, without long-term current use of insulin Increase dose of Mounjaro as noted Referrals Referral Date Details 09/18/2024 09/18/2024, OT eval at [facility] -for brachioradialis pain and elbow pain.. eval and treat Next Appt Details Follow Up: prn, Reason: Progress Notes * Yoandy CAST LDOB:1975 (48 yo M)Acc No.[id number]:09/18/2024 Progress Notes Patient: Yoandy LAWRENCE Provider: Radha Cisneros MD :1975 A ge:48 Y S ex:Male Date:09/18/2024 Address:[address] [place] [address] LARRY, Jayden BOWMAN, [id number] Subjective: * Chief Complaints: * 1 . Has pain in the tendon of his lt forearm and the pain radiates into his elbow- has a knot on that tendon. * HPI: g en: Has a couple of issues today. Feels like his left elbow is hurting, it hurts in the muscle just lateral to the lateral epicondyle. The lateral epicondyle itself has also been hurting recently. But the muscular pain predated this. He thinks he was working at his computer and he felt something pop. Also wonders about Mounjaro dosing. He states that he feels great the first couple of days after he takes Mounjaro but then begins to feel weak and tired the 2 days before. Wonders about changing the dose. He has been on stable dose of the initial dose for a while. * Medical History: A gus reflux, Allergies, IBS, Anxiety, Pneumonia, HTN, HLD, Low B12, Vitamin D deficiency, ROE - started CPAP 08/2020, Anxiety, Prediabetes. * Social History: S moking A re you a:: nonsmoker. R ecreational drug use: no. Exercise: yes. Home smoke detector use: yes. Caffeine: no. Living Will: No. Alcohol: no. Sexually active: yes. Travel outside [place]: no. 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 * Medications: T aking Claritin 10 MG Tablet 1 tab(s) orally once a day , Notes to Pharmacist: prn, Taking Ipratropium [place] 21 MCG/INH SPRAY 2 SPRAY(S) INTRANASALLY 3 TIMES A DAY , Notes to Pharmacist: *Please review and pick correct strength-formulation from Deep-Securespan options. If intended option is not shown, discontinue and re-order from Quick Search*, Taking Famotidine 20 MG Tablet 1 tab(s) orally once a day , Taking Dexilant 60 MG Capsule Delayed Release 1 cap(s) orally once a day , Taking Rosuvastatin Calcium 5 MG Tablet 1 tab(s) orally once a day , Taking FLUoxetine HCl 20 MG Capsule TAKE 1 CAPSULE BY MOUTH ONCE DAILY , Taking Tamsulosin HCl 0.4 MG Capsule TAKE 1 CAPSULE BY MOUTH ONCE DAILY , Taking Flonase Allergy Relief 50 MCG/ACT Suspension 1 spray in each nostril in each nostril twice daily , Taking Meloxicam 7.5 MG Tablet 1 tab(s) orally once a day as needed for joint pain , Taking Cetirizine HCl 10 MG Tablet 1 tablet Orally Once a day , Taking Nebivolol HCl 10 MG Tablet TAKE 1 TABLET BY MOUTH ONCE DAILY 30 DAYS , Taking Jardiance 25 MG Tablet TAKE 1 TABLET BY MOUTH EVERY MORNING , Taking Mounjaro 2.5 MG/0.5ML Solution Auto-injector 0.5ML Subcutaneous once a week , Discontinued Cefdinir 300 MG Capsule 1 tab Orally every 12 hours , Medication List reviewed and reconciled with the patient * Allergies: A LMONDS, OZEMPIC: rash - Allergy, Niacin: hives, Amoxicillin: sensitivity, Flublok: flushed feeling - Allergy. Objective: * Vitals: N urse: jl, Pain: 7-lt forearm, Temp: 97.9, RR: 18, HR: 80, BP: 124/82, Ht: 69, Wt: 224, BMI:33.08. * Examination: G eneral Examination: N o swelling obvious in the elbow. Good range of motion. 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 Some tenderness along the brachial radialis area. Some tenderness on the left lateral epicondyle. Assessment: * Assessment: 1. T enderness of brachioradialis muscle - M79.18 (Primary) 2 . L eft lateral epicondylitis - M77.12 3 . T ype 2 diabetes mellitus without complication, without long-term current use of insulin - E11.9 Plan: * Treatment: 2. L eft lateral epicondylitis Notes: Treatment as above, consider MRI if no better 3. T ype 2 diabetes mellitus without complication, without long-term current use of insulin Increase Mounjaro Solution Auto-injector, 5 MG/0.5ML, 0.5ML, Subcutaneous, once a week, 28 days, 2 Milliliter, Refills 1. Notes: Increase dose of Mounjaro as noted * Follow Up: p rn * * Sign off status: Completed true * Provider: Radha Cisneros MD Date: 0 09/18/2024 Generated for Corrie valladares/Asher/Gerardoitting on: 0 11/09/2024 01:24 AM EDT History and Physical Notes * HPI (History of Present Illness) Category Sub-Category Detail Notes Category Not es gen Has a couple of issues today. Feels like his left elbow is hurting, it hurts in the muscle just lateral to the lateral epicondyle. The lateral epicondyle itself has also been hurting recently. But the muscular pain predated this. He thinks he was working at his computer and he felt something pop. Also wonders about Mounjaro dosing. He states that he feels great the first couple of days after he takes Mounjaro but then begins to feel weak and tired the 2 days before. Wonders about changing the dose. He has been on stable dose of the initial dose for a while Examination Category Sub-Category Detail Notes Category Not es General Examination No swelling obvious in the elbow. Good range of motion. 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 Some tenderness along the brachial radialis area. Some tenderness on the left lateral epicondyle. Consultation Request Notes Referral Date Referring Provider Referred Provider Not es 09/18/2024 Chapo Cisneros , OT eval at [facility] -for brachioradialis pain and elbow pain.. eval and treat
--- OUTSIDE RECORDS SUMMARY | 2024-10-12 10:45 | XMS_ITS ---
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 Phone Chapo Cisneros Primary Care Provider [phone] Shannon Lovell Unavailable [phone] Allergies Allergen (clinical drug ingredient) Drug/Non Drug Allergy documented on EMR Reaction Allergy Type Onset Date Status ALMONDS (uncoded) Unknown Allergy Ac tive OZEMPIC (uncoded) rash Allergy Ac tive amoxicillin Amoxicillin sensitivity Drug Allergy A ctive Niacin hives Drug Allergy Active influenza A virus (H1N1) antigen / influenza A virus (H3N2) antigen / influenza B virus antigen Flublok flushed feeling Drug Allergy Active REASON FOR VISIT left arm pain Medications Medication SIG (Take, Route, Frequency, Duration) Notes Start Date End Date Status Jardiance 25 MG TAKE 1 TABLET BY MOUTH EVERY MORNING; Duration: 30 Active Voltaren Arthritis Pain 1 % as directed Externally 3 times a day; Duration: 10 days 09/18/2024 Active Cetirizine HCl 10 MG 1 tablet Orally Onc e a day; Duration: 30 days 08/28/2024 Active Nebivolol HCl 10 MG TAKE 1 TABLET BY MOUTH ONCE DAILY 30 DAYS; Duration: 30 Active Flonase Allergy Relief 50 MCG/ACT 1 spray in each nostril in each nostril twice daily; Duration: 30 days 01/02/2023 Active Meloxicam 15 MG 1 tab(s) orally once a day as needed for joint pain; Duration: 90 days 05/20/2024 Active predniSONE 20 MG 1 tablet with food or milk Orally Once a day; Duration: 7 days 10/12/2024 Active FLUoxetine HCl 20 MG TAKE 1 CAPSULE BY MOUTH ONCE DAILY; Duration: 30 Active Tamsulosin HCl 0.4 MG TAKE 1 CAPSULE BY MOUTH ONCE DAILY; Duration: 30 Active Rosuvastatin Calcium 5 MG 1 tab(s) orally once a day; Duration: 90 day(s) Active Mounjaro 5 MG/0.5ML 0.5ML Subcutaneous once a week; Duration: 28 days Active Ipratropium [place] 21 MCG/INH 2 SPRAY(S) INTRANASALLY 3 TIMES A DAY *Please review and pick correct strength-formulati on from [employer] options. If intended option is not shown, discontinue and re-order from Quick Search* Active Famotidine 20 MG 1 tab(s) orally once a day; Duration: 30 days Active Claritin 10 MG 1 tab(s) orally once a day prn Active Dexilant 60 MG 1 cap(s) orally once a day; Duration: 90 days Active Problems Problem Type SNOMED Code ICD Code Onset Dates Problem Status W/U Status Risk Notes Problem Localized, primary osteoarthritis of the hand (918739065) Primary osteoarthrit is, right hand (M19.041) Active confirmed Problem Localized, primary osteoarthritis of the hand (668609263) Primary osteoarthrit is, left hand (M19.042) Active confirmed Vital Signs Temperature 98 degrees Fahrenheit 10/12/2024 Blood pressure systolic 122 mm Hg 10/13/19 25 Blood pressure diastolic 80 mm Hg 025 Heart Rate 74 /min 10/12/2024 Height 69 in 10/12/2024 Weight 220 lbs 10/12/2024 BMI 32.48 kg/m2 10/12/2024 Encounters Encounter Location Date Provider Diagnosis [address] [address] 10/12/2024 Shannon Lovell Tenderness of brachioradialis muscle M79.18 ; Left lateral epicondylitis M77.12 ; Primary osteoarthritis, right hand M19.041 and Primary osteoarthritis, left hand M19.042 Assessments Encounter Date Diagnosis (ICD Code) Assessment Notes Treatment Notes Treatment Clinical Notes Section Notes 10/12/2024 Tenderness of brachioradialis muscle (ICD-10 - M79.18) Trial of Voltaren. He is really tender on the brachial radialis muscle, not so much on the lateral condyle. Does not seem to be muscular tearing. 10/12/2024 Left lateral epicondylitis (ICD-10 - M77.12) Continue supportive care with rest, ice, brace, OT Increase meloxicam Prednisone for inflammation Keep FU with Dr. Owens 10/12/2024 Primary osteoarthritis, right hand (ICD-10 - M19.041) Rest, warm Epsom soak, increase meloxicam Negative inflammatory arthritis panel in 202110/12/2024 Primary osteoarthritis, left hand (ICD-10 - M19.042) Plan Of Treatment Medication Medication Name Sig Start Date Stop Date Notes Meloxicam 15 MG 1 tab(s) orally once a day as needed for joint pain; Duration: 90 days 05/20/2024 predniSONE 20 MG 1 tablet with food o r milk Orally Once a day; Duration: 7 days 10/12/2024 Treatment Notes Assessment Notes Tenderness of brachioradialis muscle Trial of Voltaren. He is really tender on the brachial radialis muscle, not so much on the lateral condyle. Does not seem to be muscular tearing. Left lateral epicondylitis Continue supportive care with rest, ice, brace, OT Increase meloxicam Prednisone for inflammation Keep FU with Dr. Owens Primary osteoarthritis, right hand Rest, warm Epsom soak, increase meloxicam Negative inflammatory arthritis panel in 2021 Next Appt Details Follow Up: prn, Reason: Progress Notes * Yoandy CAST LDOB:1975 (48 yo M)Acc No.[id number]:10/12/2024 Progress Notes Patient: Yoandy LAWRENCE Iain Provider: Capo Lovell APRN :1975 A ge:48 Y S ex:Male Date:10/12/2024 Address:[address] [place] [address] Jayden JUAREZ, [id number] Pcp:Chapo Cisneros Subjective: * Chief Complaints: * 1 . Left arm pain. * HPI: g en: 48 y/o male presents for FU on left tennis elbow. Reports intermittent pain x 2 years. Constant the last few months. Pain lateral elbow radiates down ulnar aspect to wrist. No improvement with meloxicam, rest or ice. Referred to OT, numbness/tingling resolved, but pain is worse despite US and dry needling. Referred to ortho last week but has not heard from them regarding appointment. Also, concerned about pain and stiffness in hand joints. Meloxicam helps but does not fully relieve. * ROS: C ONSTITUTIONAL: no L oss of appetite. n o F ever. N EUROLOGY: Tingling numbness y es. * Medical History: A gus reflux, Allergies, IBS, Anxiety, Pneumonia, HTN, HLD, Low B12, Vitamin D deficiency, ROE - started CPAP 08/2020, Anxiety, Prediabetes. * Surgical History: g allbladder . * Hospitalization/Major Diagno stic Procedure: D enies Past Hospitalization. * Family History: F ather: alive, diagnosed with Hypertension. M other: alive, diagnosed with Hypertension.?Paternal Grand Father: . P aternal Grand Mother: . M aternal Grand Father: . M aternal Grand Mother: . S iblings: alive. C hildren: alive. 1 brother(s) - healthy. 1 son(s) , 1 daughter(s) - healthy. . * Social History: S moking A re you a:: nonsmoker. R ecreational drug use: no. Exercise: yes. Home smoke detector use: yes. Caffeine: no. Living Will: No. Alcohol: no. Sexually active: yes. Travel outside [place]: no. 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 * Medications: T aking Claritin 10 MG Tablet 1 tab(s) orally once a day , Notes to Pharmacist: prn, Taking Ipratropium Conley 21 MCG/INH SPRAY 2 SPRAY(S) INTRANASALLY 3 TIMES A DAY , Notes to Pharmacist: *Please review and pick correct strength-formulation from Medispan options. If intended option is not shown, [...] TABLET BY MOUTH EVERY MORNING , Taking Voltaren Arthritis Pain 1 % Gel as directed Externally 3 times a day , Taking Mounjaro 5 MG/0.5ML Solution Auto-injector 0.5ML Subcutaneous once a week , Medication List reviewed and reconciled with the patient * Allergies: A LMONDS, OZEMPIC: rash - Allergy, Niacin: hives, Amoxicillin: sensitivity, Flublok: flushed feeling - Allergy. Objective: * Vitals: N urse: dw, Pain: 9, Temp: 98, RR: 18, HR: 74, BP: 122/80, Ht: 69, Wt: 220, BMI:32.48. * Examination: G eneral Examination: General P leasant and Cooperative, NAD on RA,. Chest: n ormal shape and expansion. Heart: R egular Rate and Rhythm, no murmur, rubs or gallops. Lungs: L CTAB, No wheezes, crackles or rhonchi, Good air movement,. Peripheral pulses: n ormal (2+) bilaterally. Extremities: L eft elbow- no swelling or redness, lateral epicondyle tenderness, extends down forearm to wrist, 2 bruises from dry needling noted. ? Assessment: * Assessment: 1. L eft lateral epicondylitis - M77.12 (Primary) 2 . T enderness of brachioradialis muscle - M79.18 3 . P rimary osteoarthritis, right hand - M19.041 4 . P rimary osteoarthritis, left hand - M19.042 Plan: * Treatment: 2. T enderness of brachioradialis muscle Start predniSONE Tablet, 20 MG, 1 tablet with food or milk, Orally, Once a day, 7 days, 7 Tablet, Refills 0; I ncrease Meloxicam Tablet, 15 MG, 1 tab(s), orally, once a day as needed for joint pain, 90 days, 90, Refills 0. Notes: Trial of Voltaren. He is really tender on the brachial radialis muscle, not so much on the lateral condyle. Does not seem to be muscular tearing. 3. P rimary osteoarthritis, right hand Notes: Rest, warm Epsom soak, increase meloxicam Negative inflammatory arthritis panel in 2021 * Follow Up: p rn * * Sign off status: Completed true * Provider: Capo Lovell APRN Date: 0 10/12/2024 Generated for Corrie valladares/Asher/Gerardoitting on: 0 11/09/2024 01:23 AM EDT History and Physical Notes * HPI (History of Present Illness) Category Sub-Category Detail Notes Category Not es gen 48 y/o male pre sents for FU on left tennis elbow. Reports intermittent pain x 2 years. Constant the last few months. Pain lateral elbow radiates down ulnar aspect to wrist. No improvement with meloxicam, rest or ice. Referred to OT, numbness/tingling resolved, but pain is worse despite US and dry needling. Referred to ortho last week but has not heard from them regarding appointment. Also, concerned about pain and stiffness in hand joints. Meloxicam helps but does not fully relieve. Examination Category Sub-Category Detail Notes Category Not es General Examination Heart: Regular Rate and Rhythm, no murmur, rubs or gallops Lungs: LCTAB, No wheezes, c rackles or rhonchi, Good air movement, Extremities: Left elbow- no swell ing or redness, lateral epicondyle tenderness, extends down forearm to wrist, 2 bruises from dry needling noted Peripheral pulses: normal (2+) bilatera lly Chest: normal shape and exp ansion General Pleasant and Coopera tive, NAD on RA,
--- OUTSIDE RECORDS SUMMARY | 2024-11-09 01:24 | XMS_ITS | Patient Health Record ---
Author Organization 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 Role Phone Chapo Cisneros Primary Care Provider [phone] Silva Diego Unavailable [phone] Shannon Lovell Unavailable [phone] Silva Thompson Unavailable [phone] Migration, Provider Unavailable Unavailable Allergies Allergen (clinical drug ingredient) Drug/Non Drug Allergy documented on EMR Reaction Allergy Type Onset Date Status ALMONDS (uncoded) Unknown Allergy Ac tive OZEMPIC (uncoded) rash Allergy Ac tive amoxicillin Amoxicillin sensitivity Drug Allergy A ctive Niacin hives Drug Allergy Active influenza A virus (H1N1) antigen / influenza A virus (H3N2) antigen / influenza B virus antigen Flublok flushed feeling Drug Allergy Active Results Component Value Reference Range Notes Urinalysis Reviewed date:08/19/2024 09:16:54 AM Interpretation: Performing Lab: Notes/Report: Color/Clarity yellow Leuk neg Nitrite neg Urobili 0.2 Protein neg pH 5.5 Blood neg Sp. Gr. 1.010 Ketone neg Bili neg Glucose >=1000mg Rapid Strep Reviewed date:08/28/2024 12:44:56 PM Interpretation:Negative Performing Lab: Notes/Report: Negative Rapid screen Negative HEMOGLOBIN A1c (496) Reviewed date:08/17/2024 02:35:45 PM Interpretation: Performing Lab:ABRAHAM, [facility] [address] John De La Cruz Notes/Report: FASTING: YES FASTING:YES NON-FASTING; NON-FASTING; NON-FASTING; NON-FASTING; NON-FAST HEMOGLOBIN A1c 5.9 <5.7 % For someone without known diabetes, a hemoglobin A1c value between 5.7% and 6.4% is consistent with prediabetes and should be confirmed with a follow-up test. For someone with known diabetes, a value <7% indicates that their diabetes is well controlled. A1c targets should be individualized based on duration of diabetes, age, comorbid conditions, and other considerations. This assay result is consistent with an increased risk of diabetes. Currently, no consensus exists regarding use of hemoglobin A1c for diagnosis of diabetes for children. LIDYA MULTIPLEX W/REFLEX 11 AB CASCADE () Reviewed date:08/17/2024 02:35:45 PM Interpretation: Performing Lab:ABRAHAM [place], Tele[address] ItaliaXrgxHR[address] John De La Cruz Notes/Report: NON-FASTING; NON-FASTING; NON-FASTING; NON-FASTING; NON-FAST FASTING:YES FASTING: YES LIDYA SCREEN, IMMUNOASSAY NEGATIVE NEGATIVE A negative LIDYA Multiplex indicates the absence of detectable antibodies to component analytes consisting of double stranded DNA (dsDNA), chromatin, ribonucleoprotein (REVOLVING FIELD ASSEMBLER), Roth/REVOLVING FIELD ASSEMBLER (Sm/REVOLVING FIELD ASSEMBLER), Roth (Sm), SS-A, SS-B, Selina-1, centromere B, Scl-70 and ribosomal P. A negative result should be interpreted in the context of the clinical and laboratory findings and does not rule out autoimmune disease characterized by other autoantibody specificities such as rheumatoid arthritis, autoimmune hepatitis, primary biliary cirrhosis, autoimmune thyroiditis, Kimo's disease, pernicious anemia, autoimmune neuropathies, vasculitis, celiac disease, and bullous disease. For additional information, please refer to http://education.Inotrem.com/faq/KCX195 (This link is being provided for informational/ educational purposes only.) CBC (INCLUDES DIFF/PLT) (639 9) Reviewed date:08/17/2024 02:35:45 PM Interpretation: Performing Lab:ABRAHAM [employer], Tele[address] [id number] John De La Cruz Notes/Report: NON-FASTING; NON-FASTING; NON-FASTING; NON-FASTING; NON-FAST FASTING:YES FASTING: YES WHITE BLOOD CELL COUNT 5.6 3.8-10.8 Thousand/ uL RED BLOOD CELL COUNT 5.28 4.20-5.80 Million/uL HEMOGLOBIN 14.9 13.2-17.1 g/dL HEMATOCRIT 47.6 38.5-50.0 % MCV 90.2 80.0-100.0 fL MCH 28.2 27.0-33.0 pg MCHC 31.3 32.0-36.0 g/dL For adults, a slight decrease in the calculated MCHC value (in the range of 30 to 32 g/dL) is most likely not clinically significant; however, it should be interpreted with caution in correlation with other red cell parameters and the patient's clinical condition. RDW 13.6 11.0-15.0 % PLATELET COUNT 247 140-400 Thousand/uL MPV 9.8 7.5-12.5 fL ABSOLUTE NEUTROPHILS 2867 6582-7451 cells/uL ABSOLUTE LYMPHOCYTES 2195 850-3900 cells/uL ABSOLUTE MONOCYTES 381 200-950 cells/uL ABSOLUTE EOSINOPHILS 129 15-500 cells/uL ABSOLUTE BASOPHILS 28 0-200 cells/uL NEUTROPHILS 51.2 LYMPHOCYTES 39.2 MONOCYTES 6.8 EOSINOPHILS 2.3 BASOPHILS 0.5 COMPREHENSIVE METABOLIC PANE L (41778) Reviewed date:08/17/2024 02:35:45 PM Interpretation: Performing Lab:CB, [facility], [facility] HospitalSkzwTV[address] John De La Cruz Notes/Report: NON-FASTING; NON-FASTING; NON-FASTING; NON-FASTING; NON-FAST FASTING:YES FASTING: YES GLUCOSE 91 65-99 mg/dL Fasting reference interval UREA NITROGEN (BUN) 14 7-25 mg/dL CREATININE 1.02 0.60-1.29 mg/dL EGFR 92 > OR = 60 mL/min/1.73m2 BUN/CREATININE RATIO SEE NOTE: 6-22 (calc) Not Reported: BUN and Creatinine are within reference range. SODIUM 140 135-146 mmol/L POTASSIUM 4.2 3.5-5.3 mmol/L CHLORIDE 104 98-110 mmol/L CARBON DIOXIDE 28 20-32 mmol/L CALCIUM 9.1 8.6-10.3 mg/dL PROTEIN, TOTAL 6.6 6.1-8.1 g/dL ALBUMIN 4.2 3.6-5.1 g/dL GLOBULIN 2.4 1.9-3.7 g/dL (calc) ALBUMIN/GLOBULIN RATIO 1.8 1.0-2.5 (calc) BILIRUBIN, TOTAL 0.7 0.2-1.2 mg/dL ALKALINE PHOSPHATASE 113 36-130 U/L AST 26 10-40 U/L ALT 34 9-46 U/L LIPID PANEL, STANDARD (7600) Reviewed date:08/17/2024 02:35:45 PM Interpretation: Performing Lab:ABRAHAM [place] [address], [address] Network ServicesNdkkSO[address] John De La Cruz Notes/Report: NON-FASTING; NON-FASTING; NON-FASTING; NON-FASTING; NON-FAST FASTING:YES FASTING: YES CHOLESTEROL, TOTAL 141 <200 mg/dL HDL CHOLESTEROL 41 > OR = 40 mg/dL TRIGLYCERIDES 271 <150 mg/dL If a non-fasting specimen was collected, consider repeat triglyceride testing on a fasting specimen if clinically indicated. Sal et al. J. of Clin. Lipidol. 2015;9:129-169. LDL-CHOLESTEROL 64 Reference range: <100 Desirable range <100 mg/dL for primary prevention; <70 mg/dL for patients with CHD or diabetic patients with > or = 2 CHD risk factors. LDL-C is now calculated using the Karlos-Carrion calculation, which is a validated novel method providing better accuracy than the Friedewald equation in the estimation of LDL-C. Karlos SS et al. MEY. 2013;310(19): 7687-3900 (http://education.Versium.Paybubble/faq/HCY467) CHOL/HDLC RATIO 3.4 <5.0 (calc) NON HDL CHOLESTEROL 100 <130 mg/dL (calc) For patients with diabetes plus 1 major ASCVD risk factor, treating to a non-HDL-C goal of <100 mg/dL (LDL-C of <70 mg/dL) is considered a therapeutic option. VITAMIN B12/FOLATE, SERUM PA IVON (3578) Reviewed date:02/03/2024 11:49:30 AM Interpretation: Performing Lab:ABRAHAM [place] [address], [address] ItaliaPvfdNY[address] John De La Cruz Notes/Report: NON-FASTING; NON-FASTING; NON-FASTING; NON-FASTING; NON-FAST VITAMIN B12 429 596-8559 pg/mL Please Note: Although the reference range for vitamin B12 is 200-1100 pg/mL, it has been reported that between 5 and 10% of patients with values between 200 and 400 pg/mL may experience neuropsychiatric and hematologic abnormalities due to occult B12 deficiency; less than 1% of patients with values above 400 pg/mL will have symptoms. FOLATE, SERUM 10.9 Reference Range Low: <3.4 Borderline: 3.4-5.4 Normal: >5.4 TESTOSTERONE, TOTAL, MALES ( ADULT), IA (873) Reviewed date:02/03/2024 11:49:30 AM Interpretation: Performing Lab:ABRAHAM, [place] [address], [place] PwmoDQ[address] John De La Cruz Notes/Report: NON-FASTING; NON-FASTING; NON-FASTING; NON-FASTING; NON-FAST TESTOSTERONE, TOTAL, MALES (ADULT), IA 281 250-827 ng/dL HEMOGLOBIN A1c (496) Reviewed date:02/03/2024 11:49:30 AM Interpretation: Performing Lab:ABRAHAM [place] [address], [place] XiujQV[address] John De La Cruz Notes/Report: NON-FASTING; NON-FASTING; NON-FASTING; NON-FASTING; NON-FAST HEMOGLOBIN A1c 5.8 <5.7 % of total Hgb For someone without known diabetes, a hemoglobin A1c value between 5.7% and 6.4% is consistent with prediabetes and should be confirmed with a follow-up test. For someone with known diabetes, a value <7% indicates that their diabetes is well controlled. A1c targets should be individualized based on duration of diabetes, age, comorbid conditions, and other considerations. This assay result is consistent with an increased risk of diabetes. Currently, no consensus exists regarding use of hemoglobin A1c for diagnosis of diabetes for children. BASIC METABOLIC PANEL (43487 ) Reviewed date:02/03/2024 11:49:29 AM Interpretation: Performing Lab:ABRAHAM, [facility] [address], [place] BkrgDK[address] John De La Cruz Notes/Report: NON-FASTING; NON-FASTING; NON-FASTING; NON-FASTING; NON-FAST GLUCOSE 92 65-99 mg/dL Fasting reference interval UREA NITROGEN (BUN) 17 7-25 mg/dL CREATININE 0.91 0.60-1.29 mg/dL EGFR 105 > OR = 60 mL/min/1.73m2 BUN/CREATININE RATIO SEE NOTE: 6-22 (calc) Not Reported: BUN and Creatinine are within reference range. SODIUM 139 135-146 mmol/L POTASSIUM 4.0 3.5-5.3 mmol/L CHLORIDE 104 98-110 mmol/L CARBON DIOXIDE 27 20-32 mmol/L CALCIUM 9.1 8.6-10.3 mg/dL THYROID PANEL WITH TSH (7444 ) Reviewed date:02/03/2024 11:49:29 AM Interpretation: Performing Lab:ABRAHAM, [place] [facility], [facility] HospitalEmfkVE[address] John De La Cruz Notes/Report: NON-FASTING; NON-FASTING; NON-FASTING; NON-FASTING; NON-FAST T3 UPTAKE 30 22-35 % T4 (THYROXINE), TOTAL 6.7 4.9-10.5 mcg/dL FREE T4 INDEX (T7) 2.0 1.4-3.8 TSH 0.81 0.40-4.50 mIU/L Medications Medication SIG (Take, Route, Frequency, Duration) Notes Start Date End Date Status Mounjaro 5 MG/0.5ML 0.5ML Subcutaneous once a week; Duration: 28 days Active Jardiance 25 MG TAKE 1 TABLET BY MOUTH EVERY MORNING; Duration: 30 Active Voltaren Arthritis Pain 1 % as directed Externally 3 times a day; Duration: 10 days 09/18/2024 Active Meloxicam 15 MG 1 tab(s) orally once a day as needed for joint pain; Duration: 90 days 05/20/2024 Active predniSONE 20 MG 1 tablet with food or milk Orally Once a day; Duration: 7 days 10/12/2024 Active Ipratropium [place] 21 MCG/INH 2 SPRAY(S) INTRANASALLY 3 TIMES A DAY *Please review and pick correct strength-formulati on from [employer] options. If intended option is not shown, discontinue and re-order from Quick Search* Active Famotidine 20 MG 1 tab(s) orally once a day; Duration: 30 days Active FLUoxetine HCl 20 MG TAKE 1 CAPSULE BY MOUTH ONCE DAILY; Duration: 90 Active Claritin 10 MG 1 tab(s) orally once a day prn Active Tamsulosin HCl 0.4 MG TAKE 1 CAPSULE BY MOUTH ONCE DAILY; Duration: 30 Active Dexilant 60 MG 1 cap(s) orally once a day; Duration: 90 days Active Rosuvastatin Calcium 5 MG 1 tab(s) orally once a day; Duration: 90 day(s) Active Cetirizine HCl 10 MG 1 tablet Orally Onc e a day; Duration: 30 days 08/28/2024 Active Nebivolol HCl 10 MG TAKE 1 TABLET BY MOUTH ONCE DAILY 30 DAYS; Duration: 30 Active Flonase Allergy Relief 50 MCG/ACT 1 spray in each nostril in each nostril twice daily; Duration: 30 days 01/02/2023 Active Immunizations Vaccine Route Administration Date Status Comme nts Covid Moderna Unknown 01/19/2021 Administered Covid Moderna Unknown 12/22/2020 Administered Influenza-Fluzone 3+years (NON-MEDICARE) IM Intramuscular 01/28/2015 Administered Tenivac (Td) 7 + yrs IM Intramuscular 10/25/2014 Administe red Tetanus Toxoid Unknown 09/14/2009 Administered ZZ Unknown 08/23/2006 Administered Fluvirin--Influenza vaccine 3+ year Unknown 01/28/2012 Administered Fluvirin--Influenza vaccine 3+ year IM Intramuscular 02/16/2013 Administered Flublok IM Intramuscular 01/30/2022 Administered Influenza-Fluzone 3+years (NON-MEDICARE) IM Intramuscular 01/23/2016 Administered Influenza-Fluzone 3+years (NON-MEDICARE) IM Intramuscular 02/26/2017 Administered Influenza-Fluzone 3+years (NON-MEDICARE) IM Intramuscular 02/07/2018 Administered Hep A Adult 2 Dose IM Intramuscular 05/07/2018 Administere d Hep A Adult 2 Dose IM Intramuscular 11/04/2018 Administere d Flublok IM Intramuscular 03/01/2021 Administered Flublok IM Intramuscular 01/11/2020 Administered FLUZONE 6MO - OLDER IM Intramuscular 02/25/2019 Administer ed Problems Problem Type SNOMED Code ICD Code Onset Dates Problem Status W/U Status Risk Notes Problem Anxiety disorder (458401855) Anxiety disorder, unspecified (F41.9) Active confirmed Problem Obstructive sleep apnea syndrome (disorder) (92639186) Obstructive sleep apnea (adult) (pediatric) (G47.33) Active confirmed Problem Allergic rhinitis caused by pollen (disorder) (69438882) Allergic rhinitis due to pollen (J30.1) Active confirmed Problem Irritable bowel syndrome with diarrhea (320331001) Irritable bowel syndrome with diarrhea (K58.0) Active confirmed Problem Localized, primary osteoarthritis of the hand (330360784) Primary osteoarthritis, right hand (M19.041) Active confirmed Problem Localized, primary osteoarthritis of the hand (300521642) Primary osteoarthritis, left hand (M19.042) Active confirmed Problem Lower urinary tract symptoms due to benign prostatic hypertrophy (99760288518970) Enlarged prostate with lower urinary tract symptoms (N40.1) Active confirmed Problem Dependence on enabling machine or device (917534612) Dependence on other enabling machines and devices (Z99.89) Active confirmed Problem Vitamin D deficiency (59662064) Vitamin D deficiency (E55.9) Active confirmed Problem Migraine variant wit h headache (disorder) (516028390) Migraine headache (G43.909) Active confirmed Problem Hypertriglyceridemia (589038906) Hypertriglyceridemia (E78.1) Active confirmed Problem Type II diabetes mellitus without complication (333141825) Diabetes mellitus type 2, noninsulin dependent (E11.9) Active confirmed Problem Essential hypertension (95719550) Essential hypertension (I10) Active confirmed Problem Thrush (67054227) Thrush (B37.0) Active confirm ed Problem Chronic pain (12046028) Other chronic pain (G89.29) Active confirmed Problem Gastroesophageal reflux disease with esophagitis (disorder) (823754119) GERD with esophagitis (K21.0) Active confirmed Problem Body mass index 30+ - obesity (213301204) BMI 30.0-30.9,adult (Z68.30) Active confirmed Problem Gastroesophageal reflux disease (447395709) Gastroesophageal reflux disease, esophagitis presence not specified (K21.9) Active confirmed Problem Insomnia disorder related to another mental disorder (47734728) Psychophysiological insomnia (F51.04) Active confirmed Problem Hiatal hernia (15640391) Hiatal hernia (K44.9) Active confirmed Problem Hyperlipidemia (74062791) Other and unspecified hyperlipidemia (E78.5) Active confirmed Problem Generalized anxiety disorder (95170457) JORJE (generalized anxiety disorder) (F41.1) Active confirmed Problem Chronic prostatitis (87201072) Prostatitis, chronic (N41.1) Active confirmed Problem 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) Active confirmed Problem History of palpitations (435067252) History of palpitations (Z87.898) Active confirmed Problem Adult health examination (237225753) Healthcare maintenance (Z00.00) Active confirmed Problem Type II diabetes mellitus without complication (752020392) Type 2 diabetes mellitus without complication, without long-term current use of insulin (E11.9) Active confirmed Problem Seasonal allergic rhinitis (913760384) Seasonal allergic rhinitis, unspecified allergic rhinitis trigger (J30.2) Active confirmed Problem Serum vitamin B12 lo w (835752947) Low vitamin B12 level (E53.8) Active confirmed Problem Thyromegaly (3001144) Thyromegaly (E01.0) Active confirmed Problem Lower urinary tract symptoms due to benign prostatic hypertrophy (15318475193974) Benign prostatic hyperplasia with lower urinary tract symptoms, symptom details unspecified (N40.1) Active confirmed Problem Hyperlipidemia (61569005) Other hyperlipidemia (E78.49) Active confirmed Problem Generalized arthriti s (436553782) Generalized arthritis (M19.90) Active confirmed Problem Depression (147829298) Depression, unspecified (F32.A) Active confirmed Vital Signs Heart Rate 74 /min 10/12/2024 Temperature 98 degrees Fahrenheit 10/12/2024 Blood pressure diastolic 80 mm Hg 10/12/2024 Height 69 in 10/12/2024 Blood pressure systolic 122 mm Hg 10/12/2024 Weight 220 lbs 10/12/2024 BMI 32.48 kg/m2 10/12/2024 Encounters Encounter Location Date Provider Diagnosis [facility] ANJANA [address] [place] [address] 07/25/2024 Provider Migration Acute recurrent maxillary sinusitis J01.01 [facility] ANITA [address] [address] 01/28/2024 Chapo Cisneros Essential hypertensi on I10 ; Low vitamin B12 level E53.8 ; Diabetes mellitus type 2, noninsulin dependent E11.9 ; Low testosterone R79.89 ; Obstructive sleep apnea (adult) (pediatric) G47.33 ; Thyromegaly E01.0 and Routine medical exam Z00.00 [facility] MARCIO [address] [address] 05/20/2024 Silva Diego Pain in right should er M25.511 ; Exposure to influenza Z20.828 ; Pain in left shoulder M25.512 ; Other chronic pain G89.29 ; Pain in right hand M79.641 and Pain in left hand M79.642 [facility] ANJANA [address] [facility] [address] [place] [address] 05/27/2024 Chapo Cisneros Acute recurrent maxillary sinusitis J01.01 [facility] MARCIO [address] [address] 08/19/2024 Silva Diego Encounter for CDL (commercial driving license) exam Z02.4 ; Essential hypertension I10 ; Allergic rhinitis due to pollen J30.1 ; Other and unspecified hyperlipidemia E78.5 ; Obstructive sleep apnea (adult) (pediatric) G47.33 ; Dependence on other enabling machines and devices Z99.89 ; JORJE (generalized anxiety disorder) F41.1 ; Prediabetes R73.03 ; Pain in right hand M79.641 and Pain in left hand M79.642 [facility] MARCIO [address] [address] 08/28/2024 Silva Donna Sore throat J02.9 an d Infective pharyngitis J02.9 [facility] ANJANA [address] [facility] [address] [place] [address] 09/18/2024 Chapo Cisneros Tenderness of brachioradialis muscle M79.18 ; Left lateral epicondylitis M77.12 and Type 2 diabetes mellitus without complication, without long-term current use of insulin E11.9 [facility] MARCIO [address] [address] 10/12/2024 Shannon Lovell Tenderness of brachioradialis muscle M79.18 ; Left lateral epicondylitis M77.12 ; Primary osteoarthritis, right hand M19.041 and Primary osteoarthritis, left hand M19.042 [facility] MARCIO [address] [address] 02/03/2024 Chapo Cisneros [facility] ANJANA [address] [place], [place] [address] 04/14/2024 Silva Diego [facility]ITA [address] [address] 08/10/2024 Chapo Cisneros Essential hypertensi on I10 ; Other and unspecified hyperlipidemia E78.5 ; Diabetes mellitus type 2, noninsulin dependent E11.9 and Generalized arthritis M19.90 [facility] ANITA [address] [address] 10/07/2024 Chapo Cisneros [facility] ANJANA [address] [facility] [address] [place], [place] [address] 10/12/2024 Shannon Lovell Assessments Encounter Date Diagnosis (ICD Code) Assessment Notes Treatment Notes Treatment Clinical Notes Section Notes 01/28/2024 Essential hypertension (ICD-10 - I10) Well-controlled on nebivolol. Asymptomatic. 01/28/2024 Low vitamin B12 level (ICD-10 - E53.8) 05/20/2024 Pain in right shoulder (ICD-10 - M25.511) suspect bursitis vs tendonitis. rec trial of NSAID for 2-4 weeks, ice, ROM. Consider PT if no improvement. 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 08/19/2024 Essential hypertension (ICD-10 - I10) well controlled 05/27/2024 Acute recurrent maxillary sinusitis (ICD-10 - J01.01) Treat as noted. Superimposed bacterial infection on top of influenza A. Dexamethasone injection given his plans to fly to [place] this weekend 07/25/2024 Acute recurrent maxillary sinusitis (ICD-10 - J01.01) 08/10/2024 Essential hypertension (ICD-10 - I10) 08/10/2024 Other and unspecified hyperlipidemia (ICD-10 - E78.5) 08/28/2024 Sore throat (ICD-10 - J02.9) I 08/28/2024 Infective pharyngitis (ICD-10 - J02.9) Prescribed antibiotic as stated above and stressed importance of finishing complete course of antibiotic. Do not let anyone drink after the patient. Throw away toothbrush after abx complete. Discussed etiology and expected course of illness. Continue supportive care with PRN antipyretics. Encourage PO hydration. May return to school once afebrile for 24hrs and received antibiotic for a full 24 hours. I 09/18/2024 Tenderness of brachioradialis muscle (ICD-10 - M79.18) Trial of Voltaren. He is really tender on the brachial radialis muscle, not so much on the lateral condyle. Does not seem to be muscular tearing. 09/18/2024 Left lateral epicondylitis (ICD-10 - M77.12) Treatment as above, consider MRI if no better 10/12/2024 Tenderness of brachioradialis muscle (ICD-10 - [...] increase meloxicam Negative inflammatory arthritis panel in 202109/18/2024 Type 2 diabetes mellitus without complication, without long-term current use of insulin (ICD-10 - E11.9) Increase dose of Mounjaro as noted 08/10/2024 Diabetes mellitus type 2, noninsulin dependent (ICD-10 - E11.9) 08/19/2024 Allergic rhinitis due to pollen (ICD-10 - J30.1) 05/20/2024 Pain in left shoulder (ICD-10 - M25.512) 01/28/2024 Diabetes mellitus type 2, noninsulin dependent (ICD-10 - E11.9) Tolerating Mounjaro 2.5mg weekly. Will increase to 5mg weekly. Due for A1c today. 01/28/2024 Low testosterone (ICD-10 - R79.89) Had low-normal level in 2021. Continues to have excessive fatigue and weight gain despite no real change in lifestyle. Normal libido. Will check AM testosterone levels. 05/20/2024 Other chronic pain (ICD-10 - G89.29) 08/19/2024 Other and unspecified hyperlipidemia (ICD-10 - E78.5) 08/10/2024 Generalized arthritis (ICD-10 - M19.90) 10/12/2024 Primary osteoarthritis, left hand (ICD-10 - M19.042) 08/19/2024 Obstructive sleep apnea (adult) (pediatric) (ICD-10 - G47.33) 05/20/2024 Pain in right hand (ICD-10 - M79.641) meloxicam as noted...consider labs to eval for IA if no improvement or additional symptoms 01/28/2024 Obstructive sleep apnea (adult) (pediatric) (ICD-10 - G47.33) Compliant w/ CPAP 01/28/2024 Thyromegaly (ICD-10 - E01.0) Thyroid US 08/2023 w/ slightly enlarged R thyroid. No nodules. Normal TSH 09/2023. Will recheck thyroid panel today. 05/20/2024 Pain in left hand (ICD-10 - M79.642) 08/19/2024 Dependence on other enabling machines and devices (ICD-10 - Z99.89) 08/19/2024 JORJE (generalized anxiety disorder) (ICD-10 - F41.1) 01/28/2024 Routine medical exam (ICD-10 - Z00.00) Declines flu shot. Has had negative Cologuard. Non-smoker. No alcohol use. Depression screening negative. Stable home environment. Safe and good health habits. Lipid profile screening up-to-date 08/19/2024 Prediabetes (ICD-10 - R73.03) 08/19/2024 Pain in right hand (ICD-10 - M79.641) resume meloxicam as needed, if worse/persistent recommend RF, CCP, ESR 08/19/2024 Pain in left hand (ICD-10 - M79.642) Plan Of Treatment Pending Test Test Name Order Date Ultrasound : Abdomen 02/13/2019 Urinalysis 04/25/2012 Urinalysis 09/14/2020 Urinalysis 04/02/2006 X ray : Spines, Lumbar 07/18/2021 N-Stool O&P 11/03/2007 Colonoscopy 07/25/2010 H. pylori 11/10/2015 Physical Therapy 01/06/2014 CT Scan : Abdomen and Pelvis with contra st 02/06/2019 H-OVA AND PARASITE EXAM 07/23/2016 C-CBC 01/02/2017 C-Sed Rate (ESR) 04/20/2014 C-CMP 01/19/2013 C-LIPID PANEL 01/19/2013 C-TSH 01/19/2013 C-PSA 01/19/2013 C-VITAMIN B12 01/19/2013 VENIPUNCT, ROUTINE* 09/13/2016 M-Vitamin B12 07/11/2020 M-Vitamin B12 02/21/2021 M-Vitamin D 25 Hydroxy 02/21/2021 M-Vitamin D 25 Hydroxy 07/11/2020 M-GC by DNA Probe 07/18/2021 Insurance Providers Payer Name Payer Address Payer Phone Subscriber Number Group Number Insured Name Patient Relationship to Insured Coverage Start Date Coverage End Date [facility] [id number] [place] [address] [id number] Yoandy Cast Self - patient is the insured Medications Administered Medication Instructions Date of Administration Dosage Notes Cyanocobalamin/B-12 Pt's Own Medication 02/25/2013 Kenalog 40mg 03/25/2017 40 mg Triamcinolone Acetonide 40mg Injection 02/07/2018 1 mL Triamcinolone Acetonide 40mg Injection 05/07/2018 1 mL Kenalog 01/23/2013 0.5 Kenalog 01/28/2015 1 mL Kenalog 01/23/2016 1 mL Kenalog 09/29/2013 1 Kenalog 07/21/2013 1 Triamcinolone Acetonide 40mg Injection 11/09/2020 1 mL Triamcinolone Acetonide 40mg Injection 10/20/2019 1 mL Triamcinolone Acetonide 40mg Injection 12/19/2018 1 mL Kenalog 40mg 08/02/2017 40 mg Kenalog 40mg 05/20/2017 40 mg Kenalog 40mg 09/13/2016 40 mg Dexamethasone 4mg Injection 10/10/2023 4 mg Dexamethasone 4mg Injection 08/22/2023 4 mg Dexamethasone 4mg Injection 06/20/2023 4 mg Dexamethasone 4mg Injection 06/13/2023 4 mg Dexamethasone 4mg Injection 04/11/2023 4 mg Dexamethasone 4mg Injection 01/30/2023 4 mg Dexamethasone 4mg Injection 08/06/2022 4 mg Dexamethasone 4mg Injection 12/13/2021 4 mg Dexamethasone 4mg Injection 08/21/2021 4 mg Dexamethasone 4mg Injection 05/29/2021 4 mg Cyanocobalamin/B-12 Pt's Own Medication 06/30/2013 Cyanocobalamin/B-12 Pt's Own Medication 05/18/2013 Cyanocobalamin/B-12 Pt's Own Medication 04/16/2013 Cyanocobalamin/B-12 Pt's Own Medication 03/17/2013 Cyanocobalamin/B-12 Pt's Own Medication 03/12/2013 Cyanocobalamin/B-12 Pt's Own Medication 03/06/2013 Cyanocobalamin/B-12 Pt's Own Medication 01/27/2013 Cyanocobalamin/B-12 Pt's Own Medication 01/21/2013 Kenalog 06/01/2016 1 mL Dexamethasone 4mg Injection 05/27/2024 4 mL Dexamethasone 4mg Injection 08/28/2024 4 mg Triamcinolone Acetonide 40mg Injection 09/08/2020 1 mL Kenalog 07/30/2014 1 Medical (General) History Medical History History ICD Code acid reflux allergies IBS Anxiety Pneumonia HTN HLD Low B12 Vitamin D deficiency ROE - started CPAP 08/2020 Anxiety Prediabetes Surgical History Surgery Date(Month/Year) gallbladder
[2024-11-09 01:31] VITALS: BP 177/102; PULSE 87; RESP 16; TEMP 37.2; O2SAT 99; BMI 33.1
--- NOTE | 2024-11-09 01:31 | HMH.EDGENADL ---
Discharge Plan Disposition Patient Disposition: Home, Self-Care Prescriptions Prescriptions: New prednisone 50 mg tablet 50 mg PO DAILY 5 Days Qty: 5 0RF bacitracin 500 unit/gram ointment 1 applic topical TID Qty: 30 0RF No Action Jardiance 25 mg tablet 25 mg PO DAILY fluoxetine 20 mg capsule 20 mg PO DAILY PRN tamsulosin 0.4 mg capsule PO Dexilant 60 mg capsule,biphase delayed releas 60 mg PO DAILY Bystolic 5 mg tablet See Rx Instructions PO DAILY Rx Instructions: 10mg PO daily; Mounjaro 2.5 mg/0.5 mL pen injector SQ rosuvastatin 5 mg tablet 5 mg PO DAILY montelukast 10 mg tablet 10 mg PO HS fluticasone propionate [Flonase Allergy Relief] 50 mcg/actuation spray,suspension 1 spray intranasal DAILY Rx Instructions: administer into each nostril valacyclovir 1 gram tablet 2,000 mg PO Q12H 1 Days Qty: 4 0RF levocetirizine 5 mg tablet 10 mg PO DAILY Referrals Follow up/Referrals: Chapo Cisneros MD [Primary Care Provider, Internal Medicine] - See instructions Activity Restrictions/Add. Instructions Additional Instructions/Restrictions: Recommend following up with your PCP. I sent a prescription for steroids. Can discuss with your PCP whether those are indicated. Clinical Impressions Clinical Impression: Swelling of both lips Instructions Patient Instructions: DI for Skin Abscess Print Language Print Language: Irish Discharge ED Provider: Enrique Adhikari General Adult HPI General Chief complaint: Skin/Abscess/Foreign Body Stated complaint: Swollen lips, sore throat, blisters in mouth Time Seen by Provider: 11/09/24 01:15 History of Present Illness HPI narrative: 48-year-old male with these over the last year presents with painful lips and sore throat. He reports he started having a sore throat on Saturday. On he ate some seafood at a local [employer] restaurant and started having some pain in his lips and in his throat. He had never had any issues with seafood before. Over the last couple of days he has developed some blisters on his lips. No blisters within the mouth. Throat has been worsening in terms of soreness. Today over the last 12 or so hours he feels like his lips have swollen a bit. He denies any fever at home. He denies any shortness of breath, difficulty breathing, difficulty swallowing etc. He went to urgent care today and was prescribed acyclovir for cold sore. Related Data Home Medications ?Medication ?Instructions ?Recorded ?Confirmed dexlansoprazole 60 mg 60 mg PO DAILY stomach 08/08/18 11/08/24 capsule,biphase delayed release (Dexilant) nebivolol 5 mg tablet (Bystolic) See Rx Instructions PO DAILY bp 09/14/20 11/08/24 empagliflozin 25 mg tablet 25 mg PO DAILY 09/13/21 11/08/24 (Jardiance) fluoxetine 20 mg capsule 20 mg PO DAILY PRN 09/13/21 11/08/24 tamsulosin 0.4 mg capsule cap PO 09/13/21 11/08/24 fluticasone propionate 50 1 spray intranasal DAILY 11/21/23 11/08/24 mcg/actuation nasal spray,suspension (Flonase Allergy Relief) levocetirizine 5 mg tablet 10 mg PO DAILY Allergy symptoms 11/21/23 11/08/24 montelukast 10 mg tablet 10 mg PO HS 11/21/23 11/08/24 rosuvastatin 5 mg tablet 5 mg PO DAILY 11/21/23 11/08/24 tirzepatide 2.5 mg/0.5 mL mg SQ 11/21/23 11/08/24 subcutaneous pen injector (Dusty) Previous Rx's ?Medication ?Instructions ?Recorded valacyclovir 1 gram tablet 2,000 mg (2 x 1 gram) PO Q12H 1 11/08/24 day #4 tabs bacitracin 500 unit/gram topical 1 applic topical TID #30 grams 11/09/24 ointment prednisone 50 mg tablet 50 mg PO DAILY 5 days #5 tabs 11/09/24 Allergies Allergy/AdvReac Type Severity Reaction Status Date / Time Penicillins Allergy Severe Difficulty Verified 11/08/24 13:26 Swallowing semaglutide (From Ozempic) Allergy Severe Hives Verified 11/08/24 13:26 inositol niacinate (From Allergy Mild Rash Verified 11/08/24 13:26 Niacin No Flush) niacin (From Niacin No Flush) Allergy Mild Rash Verified 11/08/24 13:26 almond Allergy [facility]24 [facility] The information contained in this section may have been updated after the patient was seen, as this information can be updated by other users. Surgical History History of cholecystectomy Family History Other Cancer Diabetes Hyperlipidemia Hypertension Social History Smoking Status: Never smoker alcohol intake: never substance use type: denies use current occupational status: employed Travel in the last 8 weeks?: None household members: spouse and children housing: house caffeine: No Have you lived/traveled outside [place] in past 30 days?: No Contact w/someone who lives/traveled outside US past 30 days?: No Exposure to someone with infectious disease in past 14 days?: No Do you have a fever (greater than 100.4 F or 38 C)?: No Have you tested positive for COVID-19?: No Exposed to someone with COVID-19 in past 14 days?: No Do you have a sore throat?: Yes Do you have a cough?: No Do you have any weakness?: No Do you have any diarrhea?: No Are you experiencing any unusual bleeding?: No Do you have any muscle aches/pain?: No Do you have any abdominal pain?: No Are you experiencing loss of taste or smell?: No Other Medical History Have you received the Flu Vaccine for this season: No Have you received the Pneumonia Vaccine: No ROS Obtained: Yes All systems reviewed & no additional complaints except as documented Physical Exam General General appearance: alert and in no apparent distress Head Head exam: atraumatic and normocephalic Eye Eye exam: Present normal appearance, PERRL and EOMI ENT ENT exam: Present normal oropharynx, normal external ear exam and other (Punctate pustular eruption on the lips with some surrounding erythema. No reported ulcers, no lesions within the mouth at all.) Neck Neck exam: Present normal inspection and full ROM Chest Chest inspection: Present normal inspection and symmetric chest wall rise; Absent tenderness Respiratory Respiratory exam: Present normal lung sounds bilaterally; Absent respiratory distress Cardiovascular Cardiovascular exam: Present regular rate and normal rhythm Abdominal Exam Abdominal exam: Present soft; Absent distention, tenderness or guarding Extremities Exam Extremities exam: Present normal inspection; Absent edema or joint swelling Back Exam Back exam: Present normal inspection; Absent tenderness Neurological Exam Neurological exam: Present alert and oriented X3; Absent motor sensory deficit Psychiatric Psychiatric exam: Present normal affect and normal mood Skin Skin exam: Present warm, dry and normal color Lymphatic Lymphatic Findings: no adenopathy Medical Decision Making Medical Records Medical records reviewed: Yes I reviewed the patient's medical records. Screening: Per USPSTF and CDC recommendations, given the prevalence of disease in our region, it is our hospital?s policy to screen for HIV and viral Hepatitis for all patients aged 18 and over and those with ongoing risk factors. Issac Inquiry Pt receiving controlled substance: No Issac was queried for this patient: No Vital Signs: 11/09/24 01:31 11/09/24 02:13 11/09/24 02:13 Temperature 98.9 F Temperature Source Oral Pulse Rate 74 Pulse Rate [Right] 87 Respiratory Rate 16 Blood Pressure 174/112 H Blood Pressure [Right Arm] 177/102 H Blood Pressure Mean 146 Blood Pressure Mean [Right Arm] 127 Blood Pressure Source [Right Arm] Automatic Cuff Blood Pressure Position [Right Arm] Sitting 02 Sat by Pulse Oximetry 99 97 Oxygen Delivery Method Room Air 11/09/24 02:15 11/09/24 02:21 11/09/24 02:21 Temperature Temperature Source Pulse Rate 79 81 Pulse Rate [Right] Respiratory Rate Blood Pressure 124/84 Blood Pressure [Right Arm] Blood Pressure Mean 97 Blood Pressure Mean [Right Arm] Blood Pressure Source [Right Arm] Blood Pressure Position [Right Arm] 02 Sat by Pulse Oximetry 97 95 Oxygen Delivery Method Lab Data Lab results reviewed: Yes I reviewed the patient's lab results. Lab Results 11/09/24 01:43: Group A Strep Rapid Negative Orders (Tests/Meds): ED MEDICATIONS Discontinued Medications Generic Name Dose Route Start Last Admin Trade Name Freq PRN Reason Stop Dose Admin Bacitracin 1 gm 11/09/24 01:31 11/09/24 01:41 Bacitracin Zinc Oint 30gm Tube TP 11/09/24 01:32 1 gm ONCE ONE Administration Methylprednisolone Sodium Succinate 80 mg 11/09/24 01:31 11/09/24 01:41 Methylprednisolone Sod Succ 125mg Vial IM 11/09/24 01:32 80 mg ONCE ONE Administration ORDERS Category Date Time Status Strep Scrn Group A (Rapid) Stat Lab 11/09/24 01:43 Completed Strep Screen Confirmation Stat Micro 11/09/24 01:43 Received Medical Decision Narrative: 48-year-old male he has been developing allergies over the last year or so, presents for worsening lip pain and swelling as well as sore throat. History was obtained via interactive discussion with patient, family, chart review. On arrival, patient is [afebrile, hemodynamically stable, satting appropriately, alert, oriented x4, GCS 15], moving all extremities spontaneously. Full physical exam performed and significant for punctate pustular eruption on the upper and lower lip with some swelling and erythema. No intraoral lesions. No obvious lesions in the posterior oropharynx. Patient has no wheezing, no difficulty breathing. Differential includes but is not limited to viral infection, allergic reaction, contact dermatitis, anaphylaxis, angioedema, TN, SJS. No evidence of emergent allergic reaction/angioedema at this time, does not appear to be TN or SJS given no intraoral lesions. Will swab for strep per patient request, though it clearly would not explain the patient's lips. Given his lips are continuing to swell slowly despite Benadryl at home, I will give him a dose of steroids as well as a prescription for steroids. I do not think he requires monitoring given he has no concern for airway compromise at this time. Patient will follow-up with his PCP tomorrow for further assessment. Procedures Risk/Benefits of Procedure(s) Were Explained: Yes Critical Care Critical Care Time Critical Care Time: No
[2024-11-09] MEDS: METHYLPREDNISOLONE SOD SUCC 125MG VIAL 80 MG IM (01:41)
[2024-11-09] MEDS: BACITRACIN ZINC OINT 30GM TUBE TP (01:41)
[2024-11-09 02:10] LABS: Strep Scrn Group A (Rapid) Negative (Negative)
[2024-11-09 02:13] VITALS: BP 174/112; PULSE 74; O2SAT 97
[2024-11-09 02:15] VITALS: PULSE 79; O2SAT 97
[2024-11-09 02:21] VITALS: BP 124/84; PULSE 81; O2SAT 95
[2024-11-09 02:25] VITALS: BP 124/84; PULSE 81; RESP 14; TEMP 37.2; O2SAT 95
== END 2024-11-09 02:27 | disposition home or self-care (01) ==
PROVIDERS: Emergency Provider Emergency Medicine; PCP Internal Medicine Adolescent Medicine
DX: R22.0 Localized swelling, mass and lump, head (principal); J02.0 Streptococcal pharyngitis; G47.33 Obstructive sleep apnea (adult) (pediatric); F41.9 Anxiety disorder, unspecified
CPT/HCPCS: 87430; 96372; 99283; J2919